=== PATIENT | female | born 1940 | race Caucasian/White ===

== ENCOUNTER 2024-02-10 16:51 | Emergency (ER) | payer MEDICARE, OTHER, SELFPAY ==
[2024-02-10] VITALS (23 sets, daily range): BP systolic 78–160; BP diastolic 60–141
--- NOTE | 2024-02-10 17:09 | ED.GENMED ---
History of Present Illness
General
Chief Complaint: Heart Rate Problem
Source: patient
Exam Limitations: none
Time Seen by Provider: 02/10/24 16:54
Nursing documentation reviewed up to this point in time: agreed with
History of Present Illness
History of Present Illness:
The patient is a pleasant 83-year-old female with a past medical history of atrial fibrillation on Eliquis who reports that she had 1 episode of nausea, vomiting, and diarrhea throughout the night, and this morning when she woke up, she felt like
she was in atrial fibrillation. Patient reports that the nausea, vomiting and diarrhea have resolved. Patient reports that she knows she is in A-fib because she feels lightheaded and fatigued. She denies chest pain and shortness of breath. She
reports she did take her Eliquis last night, although she did vomit shortly after taking it. However, she reports that she did take Eliquis again this morning. She reports she has not gone into A-fib since last March when she underwent an
ablation. She admits she did have 1 shot of Baileys last night and she generally does not drink alcohol. She denies fever. Patient arrives with a low blood pressure with systolic in the 80s to 90s. Her heart rate is ranging from 90s to 120s.
Patient is followed by Dr. Santoyo
Past History
Past History
ED Past Medical History: Arrthythmia (Atrial fib), HTN, Hypercholesterolemia and Other (hiatel hernia, hypomag/calcemia)
ED Past Surgical History: Other
Social History
Tobacco: Former smoker
Alcohol: Occasional
Drug: None
Personal: Other
Living: other ( in senior care)
Employment: Other
Family History
Family History: Other
Review of Systems
Review of Systems
Allergies reviewed?: Yes
All Other Systems: ROS reviewed and negative except as documented in HPI and ROS
Constitutional: Reports fatigue
EENT: Reports no symptoms
Respiratory: Reports no symptoms
Cardiac: Reports no symptoms
ABD/GI: Reports nausea, vomiting and diarrhea
: Reports no symptoms
Musculoskeletal: Reports no symptoms
Skin: Reports no symptoms
Neurological: Reports no symptoms
Endocrine: Reports no symptoms
Hematologic/Lymphatic: Reports no symptoms
Psychiatric: Reports no symptoms
Phy Exam
Physical Exam
Physical Exam:
Physical Exam
General: no apparent distress, not acutely ill
Neck: supple. no meningeal signs.
Heart: Irregular, tachycardic
Lungs: no acute respiratory distress. clear bilaterally
Abdomen: normal bowel sounds. not tender. no CVAT
Neuro: alert and oriented. no focal neurological deficits
Skin: no rash
Psychiatric: well kept. interactive and cooperative
Extremities: no edema. no calf tenderness. negative homans. good distal pulses
Course
Orders/Labs/Results
Orders:
Orders
02/10/24 16:52
EKG [Electrocardiogram (*1)] Urgent
Reason for Study: Atrial Fibrillation
EKG- Treatment ONCE
02/10/24 17:03
CBC/With Diff [Complete Blood Count/With Diff] Urgent
02/10/24 17:48
Diltiazem HCl [Cardizem] 5 mg IV NOW STA
02/10/24 18:00
Diltiazem 125 mg/125 ml Nss [Cardizem] 125 mg in 125 ml IV PER PROTOCOL
Initial dose in mg/hr, then titrate:: 2.5
Titrate to keep:: Heart rate 80-100 bpm
Titrate by mg/hr:: 5 mg/hr
Frequency of titrations (minutes):: 15
Maximum dose in mg/hr:: 15
02/10/24 18:03
Comprehensive Metabolic Panel Urgent
02/10/24 19:43
Propofol [Diprivan] 20 ml .ROUTE .STK-MED
02/10/24 19:50
EKG [Electrocardiogram (*1)] Urgent
Reason for Study: Atrial Fibrillation
EKG- Treatment ONCE
Abnormal Lab Results
02/10/24 02/10/24
17:03 18:03
Abs Immat Gran (auto) 0.1 H 10^3/uL
(0-0.05)
Absolute Monos (auto) 1.0 H 10^3/uL
(0.1-0.6)
Immature Gran % 0.7 H %
(0-0.5)
Monocytes % 10.8 H %
(1.7-9.3)
Chloride 108 H mmol/L
(98-107)
Carbon Dioxide 20 L mmol/L
(22-30)
BUN 20 H mg/dl
(7-17)
Calcium 8.2 L mg/dl
(8.4-10.2)
02/10/24 17:03
02/10/24 18:03
Vital Signs
Initial and Last Documented VS:
Initial Vital Signs
Temp Pulse Resp BP Pulse Ox
98.2 F 96 24 91/72 94
02/10/24 16:54 02/10/24 16:54 02/10/24 16:54 02/10/24 16:54 02/10/24 16:54
Last Documented Vital Signs
Temp Pulse Resp BP Pulse Ox
97.8 F 56 17 157/81 96
02/10/24 20:30 02/10/24 21:00 02/10/24 21:00 02/10/24 21:00 02/10/24 21:00
Procedures
Moderate Sedation
ASA Risk Score: Class II
Chart and allergies reviewed: Yes
Consent for anesthesia obtained: Yes
Time out completed (validating right patient & procedure): Yes
Moderate Sedation Start Time(when first medication is given): 19:47
History of difficult intubation: No
Airway free of obstruction: Yes
Patient has a gag reflex: Yes
Patient is able to open mouth: Yes
Patient has no dentures: Yes
Patient has no loose teeth: Yes
Medication administered by Provider during Moderate Sedation: IV Propofol (mg)
Total dose administered: 50
Time drug administered: 17:47
Moderate Sedation Procedure End Time: 20:00
Cardioversion
Indication:: Afib
Performed by:: me
Synchronized?: Yes
Energy Used: 150 joules
Number of attempts: 1
Successful?: Yes
MDM/Problems Addressed
Differential Diagnosis Includes:
poorly controlled atrial fibrillation, acute dehydration, acute hyponatremia
MDM/Problems Addressed:
Patient comes in with complaints of acute onset of atrial fibrillation
Chronic conditions affecting care: Arrhythmia
Acute Exacerbation and/or Progression of Chronic Illness:
Patient presents with acute exacerbation of chronic atrial fibrillation
Acute Exacerbation and/or Progression of Chronic Illness: Arrhythmia
*Pulse Oximetry
Patient hypoxic: no
*EKG
Interpreted by ED Provider?: Yes
Interpretation: abnormal
Comparison EKG: changes noted
Rate: normal
Rhythm: atrial flutter
[place]: left axis deviation
Interval: normal interval
QRS Pattern: normal QRS
Ischemia: non-specific ST changes
*Fuselage Framer Interpretation
Rate: tachycardiac
Interpretation: abnormal
Rhythm: atrial flutter
*Critical Care Note
Total Time (30-74mins, 75-104mins- exclusive of procedures): 42 min
comment:
42 minutes of critical care given to the patient including frequent reassessments of her blood pressure, heart rate, reviewing prior medical records, and discussing the risk and benefits of doing a conscious sedation and cardioversion with the
patient
Data Reviewed
Review of Other/Old Records Reveals: Discharge Summary (Discharge summary reviewed from cardiology from March 2024 when patient was admitted for ablation and symptomatic A-fib)
Source: patient
Patient Management
Social determinants of health affecting care: Living situation and Strong social support
Escalation/DeEscalation of care consider admission/obs:
Cardioversion successful and patient now in a normal sinus bradycardia. Patient reports she feels extremely well. Patient has noted no current or recent chest pain to suggest acute coronary syndrome. Patient is able to drink without difficulty.
Patient assures me that she will call her batter scaler tomorrow for follow-up.
Update Note
Update Note:
EKG done at 1952 shows sinus bradycardia with a normal axis, normal QRS, with no acute ischemia
ED Attending Note
-
Portions of this chart may have been created with voice recognition software.� Occasional wrong word or��sound alike� substitutions may have occurred due to the inherent limitations of voice recognition software.
Discharge Plan
Departure
Patient Disposition: Home (Routine Discharge)
Date of Disposition: 02/10/24
Time of Disposition: 20:59
Patient with high blood pressure during this ER visit?: No
Condition: Good
Covid-19: Not Applicable
Discharge Problem:
Chronic a-fib
Instructions: Atrial Fibrillation (DC), Cardioversion (DC), MODERATE SEDATION ADULT
Prescriptions:
No Action
pravastatin 10 MG tablet
10 mg PO QPM
Eliquis 5 MG tablet
5 mg PO BID
multivitamin Tablet
1 tab PO QPM
ferrous sulfate 325 mg (65 mg iron) Tablet
325 mg PO QPM
calcium carbonate 500 mg calcium (1,250 mg) Tablet
1,000 mg PO HS
magnesium 250 mg Tablet
250 mg PO BID
coenzyme Q10 [CoQ-10] 100 mg Capsule
100 mg PO HS
cholecalciferol (vitamin D3) [Vitamin D3] 125 mcg (5,000 unit) Tablet
125 mcg PO QPM
cyanocobalamin (vitamin B-12) [Vitamin B-12] 1,000 mcg Tablet
1,000 mcg PO QPM
Evenity
1 dose IM MONTHLY
Vitamin C
1 tab PO QPM
metoprolol succinate 50 mg Tablet Extended Release 24 Hr
50 mg PO BID
amlodipine 5 mg Tablet
5 mg PO QPM Qty: 90 3RF
omeprazole 40 mg capsule,delayed release(DR/EC)
40 mg PO QPM
fluoxetine 10 mg capsule
10 mg PO DAILY
Rx Instructions:
TAKEN W/ 20MG = 30MG
pentoxifylline 400 MG tablet extended release
400 mg PO DAILY
fluoxetine 20 MG capsule
20 mg PO DAILY
Rx Instructions:
TAKEN W/ 10MG = 30MG
Referrals:
Danitza Bates MD [Family Provider] -
Debby Maynard MD [Active] - (Call tomorrow to follow-up within 1 week)
Interventions
Interventions:
*Risk Screen - Suicide Last Done: 02/10/24 16:54
*General Assessment Last Done: 02/10/24 16:54
*Neglect/Abuse Screening Last Done: 02/10/24 16:54
ED- Fall Risk Assessment Last Done: 02/10/24 17:10
*Nursing Disposition Last Done: 02/10/24 21:32
ED- Cardiac Assessment Last Done: 02/10/24 17:10
ED- Pulmonary Assessment Last Done: 02/10/24 17:10
Discharge Date and Time
Discharge Date/Time: 02/10/24 21:35
Print Language: P[place] ISLANDER
[2024-02-10 17:12] LABS: % Basophils 0.5 % (0-2); % Immature Granulocytes 0.7 % (0-0.5); % Lymphocytes 23.6 % (20.5-51.1); % Monocytes 10.8 % (1.7-9.3); % Neutrophils 62.4 % (42.2-75.2); Absolute Basophils 0.1 10^3/uL (0-0.2); Absolute Eosinophils 0.2 10^3/uL (0-0.7); Absolute Immature Granulocytes 0.1 10^3/uL (0-0.05); Absolute Lymphocytes 2.3 10^3/uL (1.2-3.4); Hematocrit 43.5 % (37.0-47.0); Hemoglobin 15.2 g/dL (12.0-16.0); Mean Corp Hgb Conc. 34.9 g/dL (33.0-37.0); Mean Corpuscular Volume 85.8 fL (81.0-99.0); Mean Platelet Volume 9.6 fL (7.4-10.4); Nucleated Red Blood Cells % 0 %; Platelet Count 276 10^3/uL (130-400); Red Blood Cell Count 5.07 10^6/uL (4.20-5.40); Red Cell Dist. Width 13.7 % (11.5-14.5); White Blood Cell Count 9.6 10^3/uL (4.8-10.8)
[2024-02-10] MEDS: CARDIZEM 5 MG IV (18:04)
[2024-02-10] MEDS: CARDIZEM 125 IV (18:05)
[2024-02-10 18:27] LABS: ALT (SGPT) 16 U/L (0-35); AST (SGOT) 27 U/L (14-36); Albumin 3.5 g/dl (3.5-5.0); Alkaline Phosphatase 67 U/L (38-126); Blood Urea Nitrogen 20 mg/dl (7-17); Calcium 8.2 mg/dl (8.4-10.2); Carbon Dioxide 20 mmol/L (22-30); Chloride 108 mmol/L (98-107); Estimated Creatinine Clearance 40 ml/min; Glucose 97 mg/dl (70-99); Potassium 3.9 mmol/L (3.5-5.1); Sodium 141 mmol/L (135-145); Total Bilirubin 0.5 mg/dl (0.2-1.3); Total Protein 6.3 g/dl (6.3-8.2); eGFR > 60.00
== END 2024-02-10 21:35 | disposition home or self-care (01) ==
LOC: EMR 16:51
PROVIDERS: EMERGENCY PHYSICIAN Emergency Medicine; FAMILY PHYSICIAN Family Medicine
DX: I48.20 Chronic atrial fibrillation, unspecified (principal); I10 Essential (primary) hypertension; E78.00 Pure hypercholesterolemia, unspecified; Z79.01 Long term (current) use of anticoagulants; Z87.891 Personal history of nicotine dependence
CPT/HCPCS: 99284; 96374; 80053; 85025; 93005

== ENCOUNTER 2024-05-21 01:00 | Inpatient (IN) | payer MEDICARE, OTHER, SELFPAY ==
[2024-05-18] VITALS (25 sets, daily range): BP systolic 63–163; BP diastolic 52–93; BMI 28.9
--- NOTE | 2024-05-18 08:11 | ITS.CL.ABL ---
St[facility] Machine - Ablation
Ablation
Procedure Report:
ELECTROPHYSIOLOGIC STUDY AND POSSIBLE ABLATION
DATE: 05/18/24
Primary Care Provider: Danitza Bates MD
Primary Jersey Knitter: Debby Maynard MD
INDICATION:
Symptomatic Atrial Fibrillation.
More recently she has demonstrated persistent AF and AT
HISTORY: See H and P.
Symptomatic AF, poorly controlled with attempted medical therapy
She has recurrent symptomatic atrial fibrillation and underwent EP study and ablation April 01, 2023 (cryoballoon ablation).
She has had several recurrences since that ablation. She required cardioversion for symptomatic atrial fibrillation on February 10, 2024.
Previously treated with propafenone.
She is [id number] VASC score of 4.
She has had no major bleeding complications on Eliquis
HAS-BLED: 2
Age
Alcohol use
CHADSVASc: 5
HTN
Age
DM (glucose intol)
F Gender
PRESENTING RHYTHM: AT
HISTORY: See H and P.
Symptomatic AF, poorly controlled with attempted medical therapy.
ANTICOAGULATION: Eliquis 5 mg twice daily
'TIME-OUT': called and confirmed.
SEDATION/ANESTHESIA: provided via the anesthesia department using general anesthesia.
PROCEDURE:
Ultrasound Guidance performed by ak was utilized for femoral venous Vascular Access b/l.
A decapolar CS catheter was placed within the CS for mapping and pacing.
The intracardiac ultrasound catheter was positioned in the RA for continuous intracardiac ultrasound imaging.
Heparin bolus and infusion to target ACT at 300 -350 seconds was administered. Transseptal puncture was performed. This entailed advancing a sheath with dilator into the superior vena cava and withdrawing both (monitoring intracardiac ultrasound,
fluoroscopy and tip pressure) with the tip oriented toward the atrial septum. The fossa ovalis was engaged (indicated by sudden displacement of the sheath tip as well as tenting of the fossa seen on intracardiac ultrasound).
The [employer] transseptal system was used. Left atrial catheter position was confirmed by echocardiographic imaging and fluoroscopy followed by RF delivery using the [employer] system resulting in successful LA access with pressure monitoring
demonstrating LA pressure waveforms (LA mean pressure 10 mm Hg). The sheath was advanced over the dilator and positioned in the left atrium.
The [employer] Grid multipolar mapping catheter was initially positioned through the transseptal sheath for high density mapping.
Geometry and voltage mapping was performed using the Rodriguez multipolar grid catheter. Ensite-X was utilized for three-dimensional electroanatomical mapping.
A 3-D map was created using Ensite-X in Voxel mode. A 3-D reconstructed CT image was compared to the 3-D Navex map to assist in anatomic evaluation, mapping and ablation.
This finds that the pulmonary veins are isolated in a wide area circumferential fashion except for an area of reconnection at the right superior pulmonary vein along its anterior superior quadrant. The posterior wall which was not targeted at her
ablation in 2022 shows only patchy fractionated EGM's.
The [employer] PFA catheter and system was used for cardiac ablation. Catheter positioning was guided and confirmed using both I.C.E. and fluoroscopy.
Our approach today was to reisolate the right superior pulmonary vein and also fully isolate the posterior wall of the left atrium using the Far[employer] PFA system. Once ablation was completed, cardioversion was used to restore sinus rhythm.
Remapping was performed. PV isolation (entrance and exit block) was present at each PV ostia (LSPV, LIPV, RSPV, RIPV). Additionally the posterior wall of the left atrium was electrically isolated except for a patch of tissue at the right inferior
pulmonary vein antrum posteriorly. Programmed electrical stimulation failed to induce any sustained arrhythmias. Atrial fibrillation could not be induced.
Given the finding of remaining EGM's of the posterior wall of the left atrium towards the antrum of the right inferior pulmonary vein, the ablation catheter was once again positioned in this area was targeted for ablation to complete a full
posterior wall isolation.
I.C.E. :
Pre-Ablation Post-Ablation
LVEF: 55 % 55 %
WMA: none none
Pericardial effusion: trace trace
COMPLICATIONS:
None
SUMMARY:
- Mapping and ablation to re-isolate the PVs
- Additional AF ablation set after PVI (left atrial posterior wall ablation).
- 3-D Electroanatomical Mapping
- Intracardiac Ultrasound
Post ablation, I discussed today's findings and results with the patient's daughter, Milka.
RECOMMENDATIONS:
- Observe in monitored bed.
- Maintain oral anticoagulation.
- Continue Toprol-XL
- Office visit with EP DARRELL in in 2-4 weeks, then with me in 4 months.
- Continue cardiovascular care with Dr Debby Maynard
- If there is recurrence of atrial arrhythmias, would progress consider antiarrhythmic drug therapy rather than another ablation.
Copy to:
Danitza Bates MD
Debby Maynard MD
[2024-05-18 08:54] LABS: ACT-LR - POC 276 Seconds (116-155)
[2024-05-18 09:13] LABS: ACT-LR - POC 334 Seconds (116-155)
[2024-05-18 09:37] LABS: ACT-LR - POC 363 Seconds (116-155)
[2024-05-18] MEDS: ANESTHETIC LOZENGE 1 LOZENGE PO ×2 (12:45→17:01)
--- NOTE | 2024-05-18 14:35 | PTCARENOTE ---
At 1400 Patient ambulated to bathroom without difficulty. Patient placed on toilet and asked to pull red cord if there are any issues. Red cord pulled. Patent stated bleeding in R groin. Pressure applied and ambulated back to stretcher. 10 mins
pressure held. small hematoma noted near right ride of labia. pressure held there as well. Hemostasis pad applied and groind area dressed with gauze and tegaderm. CARTOGRAPHIC ENGINEER made aware. continue bedrest.
[2024-05-18] MEDS: TYLENOL 650 MG PO ×2 (17:36→21:03)
[2024-05-18] MEDS: NORVASC 5 MG PO (18:20)
--- NOTE | 2024-05-18 18:23 | PTCARENOTE ---
Rec'd pt from lab analyst. R groin dsg has slight drainage and outlined w/ black marker. No change noted from previous assessment. No complaints of pain at this time. Oriented pt to room. Currently sitting on sit of bed eating dinner; call [place] w/in
reach.
[2024-05-18] MEDS: TOPROL XL 75 MG PO (19:46)
[2024-05-18] MEDS: PRAVACHOL 10 MG PO (19:46)
[2024-05-18] MEDS: ELIQUIS 5 MG PO (19:47)
--- NOTE | 2024-05-18 21:37 | PTCARENOTE ---
Pt rec'd at change of shift awake,alert . Right femoral site drsg intact. no active bleeding or hematoma present.Medicated with Tylenol for shoulder arthritis pain. Pt also now c/o feeling 'gassy' from drinking soda at dinner. PA notified. requested
Gas X. Sinus on telemetry.
--- NOTE | 2024-05-18 22:03 | PTCARENOTE ---
Pt prior to receiving Gas x reports vomiting x 3 in bathroom. Pt relates this all to the soda she resting in bed at present. Requesting more Tylenol but too soon since last dose. Warm blanket applied to arthritic shoulder. right groin remains
stable.
[2024-05-18] MEDS: ZOFRAN 4 MG IV (23:31)
--- NOTE | 2024-05-19 00:24 | PTCARENOTE ---
Pt medicated with Zofran after c/o nausea. Pt states ' I think it was the oil on my dinner that has my stomach so upset'. Warm blanket placed on left shoulder (arthritic) for comfort. Right femoral site remains dry no active bleeding or hematoma
present. call [place] within reach. Sinus on telemetry
--- NOTE | 2024-05-19 01:05 | PTCARENOTE ---
Pt with continued c/o nausea. Vomited up appprox 50 cc of dark liq Heme test positive. PA made aware.
--- NOTE | 2024-05-19 01:21 | W.PN.UPDATE ---
Update Note
Progress Note Update
Cardiology Update Note:
-Pt with coffee ground emesis after c/o of gas pain/indigestion
-Received Eliquis earlier, will place on hold for now until assessed by Cardiology in the AM
-Will give a stat dose of Protonix gtt and start IV in the AM
-Will benefit from GI consult
-Will monitor overnight and check h/h in the AM
[2024-05-19] MEDS: PROTONIX 100 IV (01:41)
[2024-05-19 01:52] VITALS: BP 153/76
--- NOTE | 2024-05-19 02:35 | PTCARENOTE ---
Pt reports having had issues with vomiting in past sees GI Dr given possible dx of IBS and hiatal hernia. Protonix gtt started as ordered by CV PA for heme positive emesis (rhonda moralez). remains sinus on telemetry with stable right groin.
[2024-05-19 02:58] LABS: Hematocrit 38.7 % (37.0-47.0); Hemoglobin 13.2 g/dL (12.0-16.0); Mean Corp Hgb Conc. 34.1 g/dL (33.0-37.0); Mean Corpuscular Hgb 29.9 pg (27.0-31.0); Mean Corpuscular Volume 87.8 fL (81.0-99.0); Mean Platelet Volume 9.6 fL (7.4-10.4); Platelet Count 282 10^3/uL (130-400); Red Blood Cell Count 4.41 10^6/uL (4.20-5.40); Red Cell Dist. Width 15.6 % (11.5-14.5); White Blood Cell Count 10.2 10^3/uL (4.8-10.8)
[2024-05-19 03:10] LABS: Blood Urea Nitrogen 28 mg/dl (7-17); Calcium 8.5 mg/dl (8.4-10.2); Carbon Dioxide 38 mmol/L (22-30); Chloride 93 mmol/L (98-107); Estimated Creatinine Clearance 39 ml/min; Glucose 126 mg/dl (70-99); Magnesium 1.4 mg/dl (1.6-2.3); Potassium 3.7 mmol/L (3.5-5.1); Sodium 139 mmol/L (135-145); eGFR > 60.00
--- NOTE | 2024-05-19 06:22 | PTCARENOTE ---
Dr Llanos updated about pts coffee ground emesis during the night with Protonix gtt ordered by PA and stable h/h 13.2/38.7
--- NOTE | 2024-05-19 07:28 | W.PN.CARDCBS ---
Addendum entered and electronically signed by Pascual Maynard MD 05/19/24 12:00:
She and examined by me
Remaining in SR by tele
Her major complaint is nausea and vomiting which she tells me has been rather chronic for several months
RRR, Nl S1 and S2, No S3 or S4, 05/25 [facility]
CTA b/l
S, NT, ND, + BS
No edema
Neuro non focal
Has remained in SR post ablation and CV 05/18/24
She had abrupt onset of nausea and vomiting with coffee-ground emesis. Stable Hgb.
Seen by GI and plan is for endoscopic evaluation likely
Holding apixaban and initiating IV heparin. Plan would be to hold heparin AM of endoscopy and then resume DOAC as soon as possible post endoscopy.
* Note: Given Conversion yesterday from AF to SR, will need to minimize any time off anticoagulation to no more than 12-24 hrs
Original Note:
Today's Communication / Plan
-
GI consult
IV protonix
zofran for nausea
continue eliquis at this time
Impression / Plan
-
PCP: Danitza Bates MD
CDY: Debby aMynard MD
83 y/o, PMH sig for AFib w/prior PVI (03/2023), now with recurrent symptomatic PAF, s/p multiple cardioversions. [id number]=8 maintained on eliquis. She has had no major bleeding complications on OAC.
S/P PFA. Uneventful postoperative course, stable on tele overnight, until late last evening she developed gas pain with indigestion. Ultimately because nauseous with vomiting of heme + coffee ground emesis. She was started on protonix gtt and now GI
has been consulted.
IMPRESSION:
PAF, s/p PFA, 05/18/24
Prior PVI (03/2023)
N/V with coffee ground emesis
GERD/IBS/HH
HTN
HLD
Glucose intolerance
Hypomagnesemia
Depression/Anxiety
Chronic Vertigo
PLAN:
Tele- NSR
bilat groins with mild ooze in recovery but now stable
eliquis restarted last evening- Hgb stable and will continue today
developed n/v with heme + coffee ground emesis overnight- protonix gtt started, GI consulted
this is an ongoing issue with her for 'years' and she has seen GI as outpt- initially seeing Dr. Dumas with [facility]- this doctor is currently unavailable- difficulty finding another outpt GI- has appt next month with Dr. Helga Bates at
[facility] [place]
pt says she had an upper endo 'not too long ago' but there are no reports in [facility]
takes daily omeprazole 40mg
will await GI input- she may need repeat upper endoscopy, however will not be able to stop OAC post ablation
H/H stable this AM- 13.2/38.7
Followup at [facility] in 2 weeks as scheduled and with Dr. Guardado thereafter
Continued GI followup
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
Subjective
Date of Service: May 19, 2024
Denies cp/palps/dyspnea
bloating/indigestion with nausea/vomiting overnight
currently
groin site without pain
Objective
Labs:
05/19/24 02:04
05/19/24 02:04
Labs
Hgb 13.2 g/dL (12.0-16.0) 05/19/24 02:04
Hct 38.7 % (37.0-47.0) 05/19/24 02:04
Plt Count 282 10^3/uL (130-400) 05/19/24 02:04
Sodium 139 mmol/L (135-145) 05/19/24 02:04
Potassium 3.7 mmol/L (3.5-5.1) 05/19/24 02:04
BUN 28 mg/dl (7-17) H 05/19/24 02:04
Creatinine 0.9 mg/dL (0.6-1.0) 05/19/24 02:04
Glucose 126 mg/dl (70-99) H 05/19/24 02:04
Vital Signs and I&O:
Vital Signs
Temp Pulse Resp BP Pulse Ox
97.9 F 71 20 153/76 91
05/19/24 01:54 05/19/24 06:00 05/19/24 01:54 05/19/24 01:52 05/19/24 01:53
Vital Signs
Temp Pulse Resp BP Pulse Ox
97.9 F 71 20 153/76 91
05/19/24 01:54 05/19/24 06:00 05/19/24 01:54 05/19/24 01:52 05/19/24 01:53
Intake & Output
05/17/24 05/18/24 05/19/24 05/20/24
06:59 06:59 06:59 06:59
Intake Total 1290 / 1290
Balance 1290 / 1290
Physical Exam
Physical Exam
AAOx3, MAEE 5/5
RRR S1 S2 no murmurs
CTA bilat, non labored
soft abd, + bs
right groin site without ht/bleeding, mildly tender but soft
bilat extremities w/palpable distal pulses, no edema
[2024-05-19] MEDS: PROTONIX 40 MG PO (08:50)
[2024-05-19] MEDS: TOPROL XL 75 MG PO ×2 (08:50→19:58)
[2024-05-19 08:52] VITALS: BP 109/63
[2024-05-19] MEDS: PROTONIX IV IV (09:34)
[2024-05-19] MEDS: PROZAC 30 MG PO (10:47)
[2024-05-19] MEDS: TRENTAL 400 MG PO (10:48)
[2024-05-19] MEDS: ELIQUIS 5 MG PO (10:49)
--- NOTE | 2024-05-19 11:11 | CON.GI ---
Addendum entered and electronically signed by Mary Cloud MD 05/19/24 12:23:
I saw and examined the patient.
The DIRECTOR OF LEADERSHIP DEVELOPMENT's note was reviewed and I agree with the note.
Comment: This is a 83-year-old female with past medical history as listed below including PAF s/p multiple cardioversion on Eliquis, large hiatal hernia was seeing Dr. Olmstead and after he retired has been seeing Dr. Russell who had ablation and
cardioversion on 05/18/2024 which was successful. Yesterday she started to develop epigastric discomfort with nausea vomiting also had coffee-ground emesis and she says last night she also had melena. She has been on omeprazole 40 mg daily prior
to admission and denies any use of NSAIDs. Her last endoscopy and colonoscopy were about a year ago at [facility] and showed large hiatal hernia and diverticulosis. She did receive her Eliquis today at 9 AM and has also now been started on
pantoprazole drip.
Assessment and plan nausea vomiting with coffee-ground emesis and melena with epigastric discomfort most likely related to esophagitis versus Mike's erosions or ulcers. Agree with Protonix drip. Patient to be switched to heparin drip and
Eliquis is on hold now but she did receive a dose today at 9 AM and will schedule her for an endoscopy on after Eliquis washout but if she has further episodes of melena or coffee-ground emesis or drop in hemoglobin will be performed
sooner. Will also get LFTs and lipase level and if her pain persists may also need imaging. Will also get abdomen KUB to rule out ileus or obstruction although I think this is less likely
Original Note:
Consultation
-
Date/Time Consultation Requested: 05/19/24 0730
Date/Time Consultation Performed: 05/19/24 1045
Requesting Provider: AHMET Lew
Performing Provider: Dr. Cloud/AHMET Kohli
Reason for Consultation: coffee ground emesis
Medical History
Chief Complaint / HPI
Chief Complaint: cardiac ablation
History of Present Illness:
83-year-old female with past medical history of paroxysmal A-fib status post multiple cardioversions, GERD, large hiatal hernia, hypertension, hyperlipidemia, depression, anxiety, chronic vertigo, IBS who was here for planned cardioversion that was
successful on 05/18/2024. This was successful. Patient was maintained on Eliquis. Last evening she developed indigestion which she states is usually a monthly issue for her. She had abrupt onset of nausea and vomiting with coffee-ground emesis.
The patient follows with outpatient GI group at [facility] Dr. Martinez. She is on omeprazole 40 mg daily. She states that usually once a month she has an attack where she has acute onset of epigastric discomfort followed by nausea and vomiting. The
patient states that usually she has to force regurgitate at periods of time when she feels like things are just 'stuck at the bottom'. This could be associated with liquids and solids. She has never had hematemesis prior or coffee-ground emesis.
The patient states that she does have a history of a hiatal hernia and was evaluated in the past for possible surgery but did not quite meet qualifications. The patient this morning still had episodes of small quantity of coffee-ground emesis.
When I was evaluating her she did still have 2 further episodes of small quantity of coffee grounds. She still does complain of some mid epigastric discomfort with radiation through to her back. This is mild, dull, intermittent. Vomiting relieves
this pressure, nothing makes worse. The patient had Eliquis this morning at 9 AM. She continues on pantoprazole drip.
Past Medical History
Past Medical History: Other (Paroxysmal A-fib, GERD, large hiatal hernia, hypertension, hyperlipidemia, depression, anxiety, chronic vertigo, IBS)
Past Surgical History: Other (Cardioversion, cardiac ablation)
Social History
Tobacco: Non-Smoker
Alcohol: None
Drug: None
Living: Alone
Family History
Family History: Other (Mother and maternal uncle with colon cancer)
Allergies / Home Medications
Allergy/AdvReac Type Severity Reaction Status Date / Time
amoxicillin [From Augmentin] Allergy Rash Verified 02/10/24 16:53
clavulanic acid Allergy Rash Verified 02/10/24 16:53
[From Augmentin]
Penicillins Allergy Rash Verified 02/10/24 16:53
�Medication �Instructions �Recorded
apixaban 5 mg tablet (Eliquis) 5 mg PO BID Blood Clot 11/15/20
Prevention/Tx
pravastatin 10 mg tablet 10 mg PO QPM High Cholesterol 11/15/20
fluoxetine 20 mg capsule 30 mg PO DAILY Depression 06/26/21
pentoxifylline 400 mg 400 mg PO DAILY Blood Clot 06/26/21
tablet,extended release Prevention/Tx
ferrous sulfate 325 mg (65 mg 325 mg PO QPM Supplement 10/24/22
iron) tablet
omeprazole 40 mg capsule,delayed 40 mg PO DAILY Gastrointestinal 02/26/23
release Issue
calcium carbonate 1,000 mg PO DAILY 03/18/23
coenzyme Q10 100 mg capsule 100 mg PO QPM 03/18/23
(CoQ-10)
cyanocobalamin (vitamin B-12) 1,000 mcg PO QPM 04/01/23
1,000 mcg tablet (Vitamin B-12)
metoprolol succinate 50 mg 75 mg PO BID 04/01/23
tablet,extended release 24 hr
amlodipine 5 mg tablet 5 mg PO QPM #90 tabs 04/02/23
ascorbic acid (vitamin C) 500 mg 500 mg PO QPM 05/18/24
tablet (Vitamin C)
cholecalciferol (vitamin D3) 25 25 mcg PO DAILY 05/18/24
mcg (1,000 unit) capsule (Vitamin
D3)
denosumab 60 mg/mL subcutaneous 60 mg SC [id number] 05/18/24
syringe (Prolia)
magnesium 200 mg tablet 400 mg PO QPM 05/18/24
multivitamin 1 tab PO QPM 05/18/24
Review of Systems
-
All other systems: A 12 pt ROS was Negative except as stated above in HPI
Vital Signs
Temp Pulse Resp BP Pulse Ox
97.7 F 71 20 153/76 95
05/19/24 08:00 05/19/24 06:00 05/19/24 08:00 05/19/24 01:52 05/19/24 08:00
Physical Exam
Exam
General: No Apparent Distress
HEENT: Anicteric
Respiratory: Clear
Cardiac: Regular Rhythm
GI: Soft, Non Tender, Non Distended, Normal Bowel Sounds and Other (Coffee-ground emesis visualized)
Skin: Warm and Dry
Neuro: AO x 3
Psych: Calm
Results
WBC 10.2 10^3/uL (4.8-10.8) 05/19/24 02:04
Hgb 13.2 g/dL (12.0-16.0) 05/19/24 02:04
Hct 38.7 % (37.0-47.0) 05/19/24 02:04
MCV 87.8 fL (81.0-99.0) 05/19/24 02:04
Plt Count 282 10^3/uL (130-400) 05/19/24 02:04
Sodium 139 mmol/L (135-145) 05/19/24 02:04
Potassium 3.7 mmol/L (3.5-5.1) 05/19/24 02:04
Chloride 93 mmol/L (98-107) L 05/19/24 02:04
Carbon Dioxide 38 mmol/L (22-30) H 05/19/24 02:04
BUN 28 mg/dl (7-17) H 05/19/24 02:04
Creatinine 0.9 mg/dL (0.6-1.0) 05/19/24 02:04
Calcium 8.5 mg/dl (8.4-10.2) 05/19/24 02:04
Diagnostic Image Results:
None this admission
Prior GI Procedures:
EGD: Within the past year [facility] (Dr. Olmstead) 'hiatal hernia'
Colonoscopy: Within the past year [facility] (Dr. Olmstead) ' diverticulosis'
Assessment / Plan
-
83-year-old female with past medical history of paroxysmal A-fib status post multiple cardioversions, GERD, large hiatal hernia, hypertension, hyperlipidemia, depression, anxiety, chronic vertigo, IBS who was here for planned cardioversion that was
successful on 05/18/2024. This was successful. Patient was maintained on Eliquis. Last evening she developed indigestion which she states is usually a monthly issue for her. She had abrupt onset of nausea and vomiting with coffee-ground emesis.
Asked to evaluate for the same. Hemoglobin stable 13.2. Has had approximately 4 small episodes of coffee-ground emesis. Continues to have small episodes of vomiting at present time. Epigastric discomfort with radiation through the back relieved
by vomiting. History of large hiatal hernia. On omeprazole 40 mg as an outpatient. Cardiac ablation on for with need to be on anticoagulation. Had Eliquis at 9 AM.
Impression:
Coffee-ground emesis
Epigastric discomfort
Large hiatal hernia per patient report
Chronic GERD, intermittent episodes nausea and vomiting as outpatient
Cardioversion 05/18/2024 with need for anticoagulation
Plan:
-Continue Pantoprazole gtt as already ordered
-Patient currently not tolerating oral intake, discussed with primary service. May require low dose IVF
-Zofran prn
-Had Eliquis at 9am, discussed with Cardiology, will convert to Heparin gtt in anticipation of EGD.
-Trend CBC, BMP
-EGD when Eliquis washout completed or unless actively bleeding.
-Follow up with primary GI as an outpatient.
-
-
Thank you for consultation and allowing me to participate in the patient's care. Please call the procurement professional logistics GI physician during the after hours with any questions or concerns.
[2024-05-19 11:46] VITALS: BP 110/69
--- NOTE | 2024-05-19 12:22 | CM ---
Reviewed chart. Met with Mrs. Chan to review discharge plans. She states prior to admission she resides alone in a two story home with one step to enter. She states she has a fist floor set-up. She states prior to admission she was independent
with ambulation and adls. She states she does not any DME in the home. She states she has a prescription plan with [employer] and uses [facility]. The discharge plan is to return home when medically stable.
[2024-05-19 13:01] LABS: APTT 28.7 Sec (23.4-35.0)
[2024-05-19 13:19] LABS: ALT (SGPT) 22 U/L (0-35); AST (SGOT) 47 U/L (14-36); Albumin 3.8 g/dl (3.5-5.0); Alkaline Phosphatase 57 U/L (38-126); Direct Bilirubin 0.1 mg/dl (0.0-0.4); Lipase 189 U/L (23-300); Total Bilirubin 0.6 mg/dl (0.2-1.3); Total Protein 6.4 g/dl (6.3-8.2)
[2024-05-19] MEDS: NSS 1000 IV (13:48)
[2024-05-19 15:15] VITALS: BP 132/63
[2024-05-19] MEDS: MAGNESIUM SULFATE 50 IV (15:27)
--- NOTE | 2024-05-19 15:40 | PTCARENOTE ---
Pt vomited several times, small amts 10-20ml black coffee ground emesis. IVF infusing at 80 ml/hr. Now that Pt is getting IVF, she is not drinking as much water or ice chips and now is not as nauseous. Mag rider infusing as well.
[2024-05-19] MEDS: MAG-TAB SR 84 MG PO (18:00)
[2024-05-19] MEDS: PRAVACHOL 10 MG PO (18:00)
[2024-05-19] MEDS: NORVASC 5 MG PO (18:00)
[2024-05-19] MEDS: FEOSOL 325 MG PO (18:00)
--- NOTE | 2024-05-19 18:15 | PTCARENOTE ---
Pt feeling better now, she hasn't had nausea for several hours and has managed to sleep for an hour or so. She does not want to eat dinner because her stomach is feeling better. Earlier when she attempted to eat, she became nauseous.
[2024-05-19 19:56] VITALS: BP 116/55
[2024-05-19] MEDS: HEPARIN 25000 UNITS/250 ML IV (19:58)
[2024-05-19 23:33] VITALS: BP 108/61
[2024-05-19] MEDS: NSS IV (23:41)
--- NOTE | 2024-05-20 01:52 | PTCARENOTE ---
Received patient at change of shift, SR on the monitor, HR in the 60s. Heparin started as per order. NSS discontinued as per order. See JUL.
[2024-05-20 02:25] VITALS: BP 121/59
[2024-05-20 03:06] LABS: APTT 55.2 Sec (23.4-35.0)
[2024-05-20 03:13] LABS: Blood Urea Nitrogen 44 mg/dl (7-17); Calcium 7.4 mg/dl (8.4-10.2); Carbon Dioxide 31 mmol/L (22-30); Chloride 97 mmol/L (98-107); Estimated Creatinine Clearance 44 ml/min; Glucose 92 mg/dl (70-99); Lipase 201 U/L (23-300); Magnesium 2.5 mg/dl (1.6-2.3); Potassium 3.2 mmol/L (3.5-5.1); Sodium 134 mmol/L (135-145); eGFR > 60.00
[2024-05-20 03:15] LABS: Hematocrit 30.5 % (37.0-47.0); Hemoglobin 10.2 g/dL (12.0-16.0); Mean Corp Hgb Conc. 33.4 g/dL (33.0-37.0); Mean Corpuscular Volume 89.7 fL (81.0-99.0); Mean Platelet Volume 9.4 fL (7.4-10.4); Platelet Count 225 10^3/uL (130-400); Red Cell Dist. Width 15.8 % (11.5-14.5); White Blood Cell Count 10.3 10^3/uL (4.8-10.8)
[2024-05-20 07:00] VITALS: BP 115/59
[2024-05-20] MEDS: TOPROL XL 75 MG PO ×2 (08:55→19:48)
[2024-05-20] MEDS: PROTONIX IV 40 MG IV (08:56)
[2024-05-20] MEDS: TRENTAL 400 MG PO (08:56)
[2024-05-20 09:46] LABS: APTT 97.8 Sec (23.4-35.0)
--- NOTE | 2024-05-20 09:48 | W.PN.CARDCBS ---
Addendum entered and electronically signed by Jerry Gautam DO 05/20/24 10:08:
.
K was 3.2 today. KCL 40 meq PO now. Monitor CMP
Original Note:
Today's Communication / Plan
-
Appreciate GI input.
Cont IV Heparin and Eliquis wash out. Pt is for endoscopy on May 21.
Protonix as per GI
No recurrent emesis.
Remains sinus
She noted that emesis is an ongoing issue with her for 'years' and she has seen GI as outpt- initially seeing Dr. Dumas with [facility]- this doctor is currently unavailable- difficulty finding another outpt GI- has appt next month with
Dr. Helga Bates at [facility].
pt says she had an upper endo 'not too long ago' but there are no reports in [facility]
takes daily omeprazole 40mg as outpt
Cont to monitor H/H
H/H 13.2/38.7 on May 19 and now 10.2 on May 20 2024
Impression / Plan
-
.
PCP: Danitza Bates MD
CDY: Debby Maynard MD
HPI: 83 y/o, PMH sig for AFib w/prior PVI (03/2023), now with recurrent symptomatic PAF, s/p multiple cardioversions. [id number] maintained on eliquis. She has had no major bleeding complications on OAC.
S/P PFA. Uneventful postoperative course, stable on tele overnight, until late last evening she developed gas pain with indigestion. Ultimately because nauseous with vomiting of heme + coffee ground emesis. She was started on protonix gtt and now GI
has been consulted.
IMPRESSION:
PAF, s/p PFA, 05/18/24
Prior PVI (03/2023)
N/V with coffee ground emesis
GERD/IBS/HH
HTN
HLD
Glucose intolerance
Hypomagnesemia
Depression/Anxiety
Chronic Vertigo
PLAN:
Appreciate GI input.
Cont IV Heparin and Eliquis wash out. Pt is for endoscopy on May 21.
Protonix as per GI
No recurrent emesis.
Remains sinus
She noted that emesis is an ongoing issue with her for 'years' and she has seen GI as outpt- initially seeing Dr. Dumas with [facility]- this doctor is currently unavailable- difficulty finding another outpt GI- has appt next month with
Dr. Helga Bates at [facility].
pt says she had an upper endo 'not too long ago' but there are no reports in [facility]
takes daily omeprazole 40mg as outpt
Cont to monitor H/H
H/H 13.2/38.7 on May 19 and now 10.2 on May 20 2024
Followup at [facility] in 2 weeks as scheduled after discharge and with Dr. Guardado thereafter
Discussed with nursing.
Progress Note - Rn House Supervisor
Subjective
Date of Service: May 20, 2024
Pt seen and examined. No complaints. No chest pain or shortness of breath. No emesis
Objective
Labs:
05/20/24 02:37
05/20/24 02:37
Labs
Hgb 10.2 g/dL (12.0-16.0) L D 05/20/24 02:37
Hct 30.5 % (37.0-47.0) L 05/20/24 02:37
Plt Count 225 10^3/uL (130-400) D 05/20/24 02:37
APTT 55.2 Sec (23.4-35.0) H 05/20/24 02:37
Sodium 134 mmol/L (135-145) L 05/20/24 02:37
Potassium 3.2 mmol/L (3.5-5.1) L 05/20/24 02:37
BUN 44 mg/dl (7-17) H 05/20/24 02:37
Creatinine 0.8 mg/dL (0.6-1.0) 05/20/24 02:37
Glucose 92 mg/dl (70-99) 05/20/24 02:37
Vital Signs and I&O:
Vital Signs
Temp Pulse Resp BP Pulse Ox
98.2 F 62 16 115/59 94
05/20/24 06:57 05/20/24 08:00 05/20/24 06:57 05/20/24 07:00 05/20/24 06:57
Vital Signs
Temp Pulse Resp BP Pulse Ox
98.2 F 62 16 115/59 94
05/20/24 06:57 05/20/24 08:00 05/20/24 06:57 05/20/24 07:00 05/20/24 06:57
Intake & Output
05/18/24 05/19/24 05/20/24 05/21/24
06:59 06:59 06:59 06:59
Intake Total 1290 / 1290
Output Total 250 / 250
Balance 1290 / 1290 -250 / -250
Physical Exam
Physical Exam
General: No acute distress, AAOX3
Neck: Negative JVD
Heart: Regular, Negative S3 positive S1/S2, Negative S4, No murmur
Lungs: CTA b/l, negative wheezes/rales/rhonchi
Abd: Positive BS, NT/ND, neg rebound/rigidity/guarding
Ext: Negative cyanosis/clubbing/edema
Neuro: nonfocal
[2024-05-20] MEDS: PROZAC 30 MG PO (10:19)
[2024-05-20] MEDS: KCL 40 MEQ PO (10:22)
[2024-05-20] MEDS: NSS IV (12:47)
[2024-05-20 12:49] VITALS: BP 116/66
[2024-05-20 13:04] VITALS: BMI 28.5
--- NOTE | 2024-05-20 14:45 | W.PN.GI.CBS2 ---
Addendum entered and electronically signed by Kassi Rosenthal DO 05/20/24 14:52:
please hold heparin at 3am for EGD tomorrow
Original Note:
Today's Communication / Plan
-
-- NPO for EGD tomorrow
- change diet to LRD in setting of large hiatal hernia
- EGD then esophagram
Assessment / Plan
-
83-year-old female with past medical history of paroxysmal A-fib status post multiple cardioversions, GERD, large hiatal hernia, hypertension, hyperlipidemia, depression, anxiety, chronic vertigo, IBS who was here for planned cardioversion that was
successful on 05/18/2024. This was successful. Patient was maintained on Eliquis. Last evening she developed indigestion which she states is usually a monthly issue for her. She had abrupt onset of nausea and vomiting with coffee-ground emesis.
Asked to evaluate for the same. Hemoglobin stable 13.2. Has had approximately 4 small episodes of coffee-ground emesis. Continues to have small episodes of vomiting at present time. Epigastric discomfort with radiation through the back relieved
by vomiting. History of large hiatal hernia. On omeprazole 40 mg as an outpatient. Cardiac ablation on for with need to be on anticoagulation.
last eliquis 05/18 at 1947, now on heparin
Impression:
Coffee-ground emesis
Epigastric discomfort
Large hiatal hernia per patient report
Chronic GERD, intermittent episodes nausea and vomiting as outpatient
Cardioversion 05/18/2024 with need for anticoagulation
Plan:
-Continue Pantoprazole BID
-- Currently on a cholesterol-lowering diet, will change to low residue in the setting of a large hiatal hernia
--I did review her prior imaging including her CT of her chest showing majority of her stomach in her chest which is likely the cause of a lot of her GI symptoms
--In the setting of coffee-ground emesis with a drop in hemoglobin today we will proceed with endoscopy tomorrow
--Hold heparin at 3 AM
--After the endoscopy we will go ahead with a barium esophagram to get a layout of her hiatal hernia which may need repaired since she is symptomatic
--Follow-up here with us in the outpatient setting since her previous GI doctor, Dr. Olmstead retired
.
Subjective
Subjective
Date of Service: May 20, 2024
Denies any further nausea vomiting or coffee-ground emesis. Has not had a bowel movement and states she has been on iron and has had dark stools that are formed and has never had melena
Objective
Data Reviewed
Laboratory Data:
Laboratory Results
05/20/24 02:37
05/20/24 02:37
Laboratory Results
APTT 97.8 Sec (23.4-35.0) H 05/20/24 09:24
Magnesium 2.5 mg/dl (1.6-2.3) H 05/20/24 02:37
Total Bilirubin 0.6 mg/dl (0.2-1.3) 05/19/24 12:37
AST 47 U/L (14-36) H 05/19/24 12:37
ALT 22 U/L (0-35) 05/19/24 12:37
Alkaline Phosphatase 57 U/L (38-126) 05/19/24 12:37
Lipase 201 U/L (23-300) 05/20/24 02:37
Vital Signs and I&O:
Vital Signs
Temp Pulse Resp BP Pulse Ox
98.4 F 67 16 116/66 93
05/20/24 12:49 05/20/24 14:00 05/20/24 12:49 05/20/24 12:49 05/20/24 12:49
I&O
05/19/24 05/20/24 05/21/24
06:59 06:59 06:59
Intake Total 1290 / 1290
Output Total 250 / 250
Balance 1290 / 1290 -250 / -250
Physical Exam
Physical Exam
HEENT: Anicteric
GI: Soft, Non Distended and Non Tender
Extremities: No Edema
Neuro: Non Focal
--- NOTE | 2024-05-20 16:45 | PTCARENOTE ---
Pt denies any nausea today. She has been jakub meals well. Her appetite has greatly improved.
[2024-05-20 17:39] VITALS: BP 99/60
[2024-05-20] MEDS: NORVASC 5 MG PO (17:43)
[2024-05-20] MEDS: FEOSOL 325 MG PO (17:43)
[2024-05-20] MEDS: MAG-TAB SR 84 MG PO (17:43)
[2024-05-20] MEDS: PRAVACHOL 10 MG PO (17:43)
[2024-05-20] MEDS: HEPARIN 25000 UNITS/250 ML IV (17:45)
[2024-05-20 18:35] LABS: APTT 103.5 Sec (23.4-35.0)
[2024-05-20 19:47] VITALS: BP 123/59
[2024-05-20 22:31] VITALS: BP 106/49
--- NOTE | 2024-05-20 22:52 | PTCARENOTE ---
Received patient at change of shift. SR on the monitor, HR in the 60s. Heparin running as per protocol, see documentation. Discussed NPO at midnight with pt, pt verbalizes understanding. No complaints from pt at this time, call [place] within reach.
[2024-05-21] VITALS (11 sets, daily range): BP systolic 23–131; BP diastolic 35–67
[2024-05-21 03:56] LABS: Hematocrit 30.6 % (37.0-47.0); Mean Corp Hgb Conc. 32.7 g/dL (33.0-37.0); Mean Corpuscular Hgb 29.6 pg (27.0-31.0); Mean Corpuscular Volume 90.5 fL (81.0-99.0); Mean Platelet Volume 9.7 fL (7.4-10.4); Platelet Count 216 10^3/uL (130-400); Red Blood Cell Count 3.38 10^6/uL (4.20-5.40); Red Cell Dist. Width 15.7 % (11.5-14.5); White Blood Cell Count 8.7 10^3/uL (4.8-10.8)
[2024-05-21 04:35] LABS: ALT (SGPT) 15 U/L (0-35); AST (SGOT) 29 U/L (14-36); Albumin 3.1 g/dl (3.5-5.0); Alkaline Phosphatase 63 U/L (38-126); Blood Urea Nitrogen 24 mg/dl (7-17); Calcium 7.3 mg/dl (8.4-10.2); Carbon Dioxide 29 mmol/L (22-30); Chloride 100 mmol/L (98-107); Estimated Creatinine Clearance 50 ml/min; Glucose 86 mg/dl (70-99); Potassium 3.5 mmol/L (3.5-5.1); Sodium 135 mmol/L (135-145); Total Bilirubin 0.5 mg/dl (0.2-1.3); Total Protein 5.5 g/dl (6.3-8.2); eGFR > 60.00
[2024-05-21] MEDS: TOPROL XL 75 MG PO ×2 (09:26→20:52)
--- NOTE | 2024-05-21 09:44 | PTCARENOTE ---
Rec'd pt this shift awake and alert. Pt denies pain, denies sob, denies N/V. Pt NPO and sent for EGD at 0800 this am. Pt NSR on monitor. See worklist for VS/I and O and assessments.
--- NOTE | 2024-05-21 10:03 | W.PN.CARDCBS ---
Addendum entered and electronically signed by Jerry Gautam DO 05/21/24 11:37:
I saw and examined the patient.
The Trash Man's note was reviewed and I agree with the note.
Comment:
Plan:
Pt is s/p EGD, for esophagram today
Resume IV Heparin and transition to Eliquis AM
Monitor H/H as outpt
Stable cv status
Original Note:
Today's Communication / Plan
-
s/p EGD with esophagitis and Mike lesions
for esophagram today for hiatal hernia - will need OP eval for surgical repair
resume IV heparin
if hgb stable overnight, resume eliquis in AM
will need CBC early next week
Impression / Plan
-
.
PCP: Danitza Bates MD
CDY: Debby Maynard MD
HPI: 83 y/o, PMH sig for AFib w/prior PVI (03/2023), now with recurrent symptomatic PAF, s/p multiple cardioversions. [id number] maintained on eliquis. She has had no major bleeding complications on OAC.
S/P PFA. Uneventful postoperative course, stable on tele overnight, until late last evening she developed gas pain with indigestion. Ultimately because nauseous with vomiting of heme + coffee ground emesis. She was started on protonix gtt and now GI
has been consulted.
IMPRESSION:
PAF, s/p PFA, 05/18/24
Prior PVI (03/2023)
N/V with coffee ground emesis, resolved
GERD/IBS/large hiatal hernia
HTN
HLD
Glucose intolerance
Hypomagnesemia
Depression/Anxiety
Chronic Vertigo
ECHO 05/2021: EF 60%, isolated basal septal hypertrophy, mild MR, trace AR, mild TR, mild CO
PLAN:
-Patient underwent PFA ablation 05/18/24.
-Then had nausea/vomiting with coffee-ground emesis. Underwent EGD 05/21/2024 with esophagitis and Mike lesions. Also noted to have large hiatal hernia.
-No recurrent symptoms
-Okay to resume IV heparin per GI today
-For esophagram today. Will need outpatient surgical evaluation for hiatal hernia repair
-Continue PPI
-Hemoglobin 10.0 on 05/21. If hemoglobin stable overnight, okay to resume Eliquis and discharge
-Remains in sinus rhythm on review of telemetry overnight. continue OP toprol
-OP cardiac follow up arranged
-d/w nursing. d/w GI via TT.
Progress Note - Ice Hockey Coach
Subjective
Date of Service: May 21, 2024
No nausea/vomiting/abdominal pain overnight
Objective
Labs:
05/21/24 03:12
05/21/24 03:12
Labs
Hgb 10.0 g/dL (12.0-16.0) L 05/21/24 03:12
Hct 30.6 % (37.0-47.0) L 05/21/24 03:12
Plt Count 216 10^3/uL (130-400) 05/21/24 03:12
APTT 103.5 Sec (23.4-35.0) H 05/20/24 18:05
Sodium 135 mmol/L (135-145) 05/21/24 03:12
Potassium 3.5 mmol/L (3.5-5.1) 05/21/24 03:12
BUN 24 mg/dl (7-17) H 05/21/24 03:12
Creatinine 0.7 mg/dL (0.6-1.0) 05/21/24 03:12
Glucose 86 mg/dl (70-99) 05/21/24 03:12
Vital Signs and I&O:
Vital Signs
Temp Pulse Resp BP Pulse Ox
97.7 F 63 24 120/86 94
05/21/24 08:50 05/21/24 09:26 05/21/24 09:05 05/21/24 09:26 05/21/24 09:05
Vital Signs
Temp Pulse Resp BP Pulse Ox
97.7 F 63 24 120/86 94
05/21/24 08:50 05/21/24 09:26 05/21/24 09:05 05/21/24 09:26 05/21/24 09:05
Intake & Output
05/19/24 05/20/24 05/21/24 05/22/24
07:59 07:59 07:59 07:59
Intake Total 1290 / 1290
Output Total 250 / 250
Balance 1290 / 1290 -250 / -250
Physical Exam
Physical Exam
GEN: No distress, awake, alert, oriented x3
HEENT: supple, anicteric, mmm, eomi
LUNGS: CTA B/L, no wheezes
CV: Reg, S1/S2, no murmur
ABD: soft, BS+, NT/ND
EXT: No cyanosis, clubbing, edema
NEURO: Gross non-focal
SKIN: Warm, pink, dry. No rash. R groin site with mild soreness to palpation.
[2024-05-21] MEDS: HEPARIN 25000 UNITS/250 ML IV (10:06)
--- NOTE | 2024-05-21 10:12 | CM ---
Reviewed chart. Met with Mrs. Chan to review discharge plans. She states she is going for tests today. Prior to admission she resides alone in a two story home with one step to enter. She has a first floor set-up. Prior to admission she was
independent with ambulation and adls. She does not have any DME in the home. She has a prescription plan with [facility] and uses [facility]. Medical work-up in progress. The discharge plan is to return home when medically stable.
--- NOTE | 2024-05-21 11:01 | PTCARENOTE ---
Heparin resumed at 800 units/hr. Pt sent to [facility] at this time.
[2024-05-21] MEDS: TRENTAL 400 MG PO (12:14)
[2024-05-21] MEDS: PROZAC 30 MG PO (12:15)
[2024-05-21] MEDS: PROTONIX IV IV (12:25)
--- NOTE | 2024-05-21 16:19 | PTCARENOTE ---
Pt ambulating in room without difficulty. PTT sent on 800 units/hr of Heparin. Pt denies pain, denies sob.
[2024-05-21 16:36] LABS: APTT 55.7 Sec (23.4-35.0)
[2024-05-21] MEDS: PRAVACHOL 10 MG PO (17:22)
[2024-05-21] MEDS: NORVASC 5 MG PO (17:22)
[2024-05-21] MEDS: MAG-TAB SR 84 MG PO (17:22)
--- NOTE | 2024-05-21 18:45 | W.PN.UPDATE ---
Update Note
Progress Note Update
pt seen in courtesy evaluation this evening for her progressively symptomatic large type III/IV PEH
tolerated PO intake for dinner - limited to mash potatoes and other soft food and small portion
we discussed indications for operative correction which should be strongly considered given frequency of recurrent GOO symptoms on a monthly basis for almost the last year now
will further discuss with patient at outpatient follow up if medically cleared for OR from cardiac perspective. would lean towards proceeding with surgery more expediently if possible in the next 4-6 weeks
provided patient with my contact information
my office will also reach out to patient to schedule office follow up with myself within the next 7-10days
advised regarding low fiber, soft diet and small portion sizes limited to about the size of a clenched fist; also recommended protein shakes BID to supplement caloric intake while diet is limited
patient appreciative of our discussions. any of her current concerns or questions were addressed and will be further discussed in more detail at formal outpatient consultation.
thank you
[2024-05-21] MEDS: NSS (PRESERVATIVE FREE) 10 ML IV (20:52)
[2024-05-21] MEDS: PROTONIX IV 40 MG IV (20:52)
--- NOTE | 2024-05-22 02:09 | PTCARENOTE ---
Received patient at change of shift. SR on the monitor, HR in the 60s. Heparin running as per protocol, see documentation. No complaints from pt at this time, call [place] within reach.
[2024-05-22 02:20] VITALS: BP 107/59
[2024-05-22 06:00] LABS: Hematocrit 27.9 % (37.0-47.0); Hemoglobin 9.3 g/dL (12.0-16.0); Mean Corp Hgb Conc. 33.3 g/dL (33.0-37.0); Mean Corpuscular Hgb 29.9 pg (27.0-31.0); Mean Corpuscular Volume 89.7 fL (81.0-99.0); Mean Platelet Volume 9.4 fL (7.4-10.4); Platelet Count 185 10^3/uL (130-400); Red Blood Cell Count 3.11 10^6/uL (4.20-5.40); Red Cell Dist. Width 15.6 % (11.5-14.5); White Blood Cell Count 6.9 10^3/uL (4.8-10.8)
[2024-05-22 06:29] LABS: APTT 110.6 Sec (23.4-35.0)
[2024-05-22 06:46] VITALS: BP 116/67
--- NOTE | 2024-05-22 08:17 | W.PN.CARDCBS ---
Addendum entered and electronically signed by Miguel Lara MD 05/22/24 09:19:
I saw and examined the patient.
The Shearing Machine Operator's note was reviewed and I agree with the note.
Comment: Briefly, 83-year-old woman who presented initially for atrial fibrillation ablation 05/19/2024 and experienced episode of nausea and vomiting with coffee-ground emesis
Underwent GI workup including EGD which showed large hiatal hernia with Mike lesions
Plan to transition from IV heparin to p.o. Eliquis today, appreciate GI recommendations
Stable for discharge from my perspective
Outpatient follow-up and repeat labs have been arranged
Original Note:
Today's Communication / Plan
-
hgb down slightly to 9.3 on IV heparin but no evidence of active bleeding
transition to eliquis
repeat CBC and iron panel in 1 week
in SR
OP surgical follow up
OP cardiac follow up arranged
for DC
Impression / Plan
-
.
PCP: Danitza Bates MD
CDY: Debby Maynard MD
HPI: 83 y/o, PMH sig for AFib w/prior PVI (03/2023), now with recurrent symptomatic PAF, s/p multiple cardioversions. [id number]=2 maintained on eliquis. She has had no major bleeding complications on OAC.
S/P PFA. Uneventful postoperative course, stable on tele overnight, until late last evening she developed gas pain with indigestion. Ultimately because nauseous with vomiting of heme + coffee ground emesis. She was started on protonix gtt and now GI
has been consulted.
IMPRESSION:
PAF, s/p PFA, 05/18/24
Prior PVI (03/2023)
N/V with coffee ground emesis, resolved
GERD/IBS/large hiatal hernia
HTN
HLD
Glucose intolerance
Hypomagnesemia
Depression/Anxiety
Chronic Vertigo
ECHO 05/2021: EF 60%, isolated basal septal hypertrophy, mild MR, trace AR, mild TR, mild WY
PLAN:
-Patient underwent PFA ablation 05/18/24.
-Then had nausea/vomiting with coffee-ground emesis. Underwent EGD 05/21/2024 with esophagitis and Mike lesions. Also noted to have large hiatal hernia.
-No recurrent symptoms
-remains on IV heparin without abd pain, dark or bloody stools, or recurrent vomiting. plan to transition to eliquis today. hgb down slightly to 9.3. will have patient repeat CBC and iron panel in 1 week
-appreciate surgical input. for OP follow up with Dr. Landin for surgical repair of large hiatal hernia
-Continue PPI BID
-Remains in sinus rhythm on review of telemetry overnight. continue OP toprol
-OP cardiac follow up arranged
-ok for DC to home today
-total DC time 36 minutes
-d/w GI
#[id number]
Progress Note - Blind Installer
Subjective
Date of Service: May 22, 2024
No issues overnight. Denies abdominal pain, dark or bloody stools, or recurrent vomiting
Objective
Labs:
05/22/24 05:41
05/21/24 03:12
Labs
Hgb 9.3 g/dL (12.0-16.0) L 05/22/24 05:41
Hct 27.9 % (37.0-47.0) L 05/22/24 05:41
Plt Count 185 10^3/uL (130-400) 05/22/24 05:41
APTT 110.6 Sec (23.4-35.0) H 05/22/24 05:41
Sodium 135 mmol/L (135-145) 05/21/24 03:12
Potassium 3.5 mmol/L (3.5-5.1) 05/21/24 03:12
BUN 24 mg/dl (7-17) H 05/21/24 03:12
Creatinine 0.7 mg/dL (0.6-1.0) 05/21/24 03:12
Glucose 86 mg/dl (70-99) 05/21/24 03:12
Vital Signs and I&O:
Vital Signs
Temp Pulse Resp BP Pulse Ox
98.5 F 66 20 116/67 95
05/22/24 06:45 05/22/24 08:00 05/22/24 06:45 05/22/24 06:46 05/22/24 06:45
Vital Signs
Temp Pulse Resp BP Pulse Ox
98.5 F 66 20 116/67 95
05/22/24 06:45 05/22/24 08:00 05/22/24 06:45 05/22/24 06:46 05/22/24 06:45
Intake & Output
05/20/24 05/21/24 05/22/24 05/23/24
07:59 07:59 07:59 07:59
Intake Total 500 / 500
Output Total 250 / 250 3 / 3
Balance -250 / -250 497 / 497
Physical Exam
Physical Exam
GEN: No distress, awake, alert, oriented x3
HEENT: supple, anicteric, mmm, eomi
LUNGS: CTA B/L, no wheezes/rales
CV: Reg, S1/S2, no murmur
ABD: soft, BS+, NT/ND
EXT: No cyanosis, clubbing, edema
NEURO: Gross non-focal
SKIN: Warm, pink, dry. No rash
--- NOTE | 2024-05-22 08:41 | W.DS.TRANS ---
DC Summary - Petrology Teacher
-
Discharge Instructions:
Sleep Apnea Risk Low
Discharge Diagnosis/Procedures AFib, s/p ablation, hematemesis, large hiatal
hernia
Diet Low Cholesterol,Other diet
Additional Diets low fiber, soft foods, and small portions.
should take protein shakes twice daily
Driving Restrictions No driving for 24 hours
Bathing Restrictions None
Blood Work CBC and iron panel in 1 week with results to GI
Instructions:
Stand-Alone Forms: DC Instructions- Cath/EP Lab
Changes to Home Medications: Yes
Discharge Medications:
DC Medications w/original date entered in [employer]
apixaban 5 mg tablet (Eliquis) 5 mg PO BID Blood Clot Prevention/Tx 11/15/20
pravastatin 10 mg tablet 10 mg PO QPM High Cholesterol 11/15/20
fluoxetine 20 mg capsule 30 mg PO DAILY Depression 06/26/21
pentoxifylline 400 mg tablet,extended release 400 mg PO DAILY Blood Clot Prevention/Tx 06/26/21
ferrous sulfate 325 mg (65 mg iron) tablet 325 mg PO QPM Supplement 10/24/22
calcium carbonate 1,000 mg PO DAILY 03/18/23
coenzyme Q10 100 mg capsule (CoQ-10) 100 mg PO QPM 03/18/23
cyanocobalamin (vitamin B-12) 1,000 mcg tablet (Vitamin B-12) 1,000 mcg PO QPM 04/01/23
metoprolol succinate 50 mg tablet,extended release 24 hr 75 mg PO BID 04/01/23
amlodipine 5 mg tablet 5 mg PO QPM #90 tabs 04/02/23
ascorbic acid (vitamin C) 500 mg tablet (Vitamin C) 500 mg PO QPM 05/18/24
cholecalciferol (vitamin D3) 25 mcg (1,000 unit) capsule (Vitamin D3) 25 mcg PO DAILY 05/18/24
denosumab 60 mg/mL subcutaneous syringe (Prolia) 60 mg SC [id number] 05/18/24
magnesium 200 mg tablet 400 mg PO QPM 05/18/24
multivitamin 1 tab PO QPM 05/18/24
pantoprazole 40 mg tablet,delayed release 40 mg PO BID #180 tabs 05/22/24
Home Medication Changes
stop omeprazole, now on pantoprazole BID
Pending Results: No
[2024-05-22] MEDS: NSS (PRESERVATIVE FREE) 10 ML IV (09:15)
[2024-05-22] MEDS: PROTONIX IV 40 MG IV (09:16)
[2024-05-22] MEDS: TOPROL XL 75 MG PO (09:17)
[2024-05-22] MEDS: PROZAC PO (09:17)
[2024-05-22] MEDS: TRENTAL 400 MG PO (09:18)
[2024-05-22] MEDS: ELIQUIS 5 MG PO (09:18)
--- NOTE | 2024-05-22 10:42 | CM ---
Reviewed chart. Met with Mrs. Chan to review discharge plans. She states she is feeling better and maybe able to go home soon. She states she will be coming back for general surgery. Prior to admission she resides alone in a two story home
with one step to enter. She has a first floor set-up. Prior to admission she was independent with ambulation and adls, She walden not have any DME in the home. She has a prescription plan and uses [facility]. Medial work-up in progress. The
discharge plan is to return home when medically stable.
--- NOTE | 2024-05-22 10:56 | W.PN.GI.CBS2 ---
Today's Communication / Plan
-
Ok to resume anticoagulation today
Labs (CBC and iron panel) in 1wk --slip provided
GI office will call to arrange OP FU with Dr Rosenthal
GI will sign off please call for ?
Assessment / Plan
-
83-year-old female with past medical history of paroxysmal A-fib status post multiple cardioversions, GERD, large hiatal hernia, hypertension, hyperlipidemia, depression, anxiety, chronic vertigo, IBS who was here for planned cardioversion that was
successful on 05/18/2024. This was successful. Patient was maintained on Eliquis. Last evening she developed indigestion which she states is usually a monthly issue for her. She had abrupt onset of nausea and vomiting with coffee-ground emesis.
Asked to evaluate for the same. Hemoglobin stable 13.2. Has had approximately 4 small episodes of coffee-ground emesis. Continues to have small episodes of vomiting at present time. Epigastric discomfort with radiation through the back relieved
by vomiting. History of large hiatal hernia. On omeprazole 40 mg as an outpatient. Cardiac ablation on for with need to be on anticoagulation.
last eliquis 05/18 at 1947, now on heparin
Impression:
Coffee-ground emesis
Epigastric discomfort
Large hiatal hernia per patient report
Chronic GERD, intermittent episodes nausea and vomiting as outpatient
Cardioversion 05/18/2024 with need for anticoagulation
Plan:
-Continue Pantoprazole BID senior living
-C/w low residue diet
-Given stable H/H and no further bloody output reasonable to resume eliquis
-Appreciate surgical recommenations
Repeat labs in 1wk-slip provided
GI office will call to set her up with FU appt with Dr Rosenthal
Above d/w primary team. GI will sign off please call for questions
Subjective
Subjective
Date of Service: May 22, 2024
Passed BM this AM. Denies abd pain, nausea or vomiting. Tolerating diet
Objective
Data Reviewed
Laboratory Data:
Laboratory Results
05/22/24 05:41
05/21/24 03:12
Laboratory Results
APTT Cancelled 05/22/24 12:45
Magnesium 2.5 mg/dl (1.6-2.3) H 05/20/24 02:37
Total Bilirubin 0.5 mg/dl (0.2-1.3) 05/21/24 03:12
AST 29 U/L (14-36) 05/21/24 03:12
ALT 15 U/L (0-35) 05/21/24 03:12
Alkaline Phosphatase 63 U/L (38-126) 05/21/24 03:12
Lipase 201 U/L (23-300) 05/20/24 02:37
Vital Signs and I&O:
Vital Signs
Temp Pulse Resp BP Pulse Ox
98.5 F 66 20 116/67 95
05/22/24 06:45 05/22/24 08:00 05/22/24 06:45 05/22/24 06:46 05/22/24 09:28
I&O
05/21/24 05/22/24 05/23/24
06:59 06:59 06:59
Intake Total 500 / 500
Output Total 3 / 3
Balance 497 / 497
Physical Exam
Physical Exam
GEN: No acute distress, conversant, pleasant
HEENT: anicteric, extraocular movements intact, clear oropharynx without exudates
GI: soft, non-distended, not tender to palpation, normal active bowel sounds, no hepatosplenomegaly
EXT: warm, well perfused, no edema bilaterally ++khyphosis
NEURO: AAOx3, non-focal
[2024-05-22 11:36] VITALS: BP 113/63
--- NOTE | 2024-05-22 12:38 | PTCARENOTE ---
Pt seen by Sole Allison NP and Dr.Hannah Rosenberg. Pt reports a normal bowel movement today. Telemetry and IV device removed. Discharge instructions reviewed with pt regarding low fiber diet, activity guidelines, medications and their possible side
effects, wound care, reporting cares and concerns and follow up apppts. Excellent understanding taught back to RN. Pt escorted out via wheelchair and will drive herself home ( greater than 24 hours since sedation was given).
== END 2024-05-22 12:42 | disposition home or self-care (01) | DRG 981 ==
LOC: IVU 01:00
PROVIDERS: Internal Medicine; Internal Medicine Cardiovascular Disease; Nuclear Medicine Nuclear Cardiology; Nurse Practitioner; Physician Assistant; ADMITTING PHYSICIAN Internal Medicine Cardiovascular Disease; CONSULT PHYSICIAN Surgery; FAMILY PHYSICIAN Family Medicine; OTHER PHYSICIAN Internal Medicine Gastroenterology
PROC: 4A0234Z Measurement of Cardiac Electrical Activity, Percutaneous Approach (ICD-10-PCS; 2024-05-18)
PROC: 02K83ZZ Map Conduction Mechanism, Percutaneous Approach (ICD-10-PCS; 2024-05-18)
PROC: 4A023FZ Measurement of Cardiac Rhythm, Percutaneous Approach (ICD-10-PCS; 2024-05-18)
PROC: 5A2204Z Restoration of Cardiac Rhythm, Single (ICD-10-PCS; 2024-05-18)
PROC: 02583ZF Destruction of Conduction Mechanism using Irreversible Electroporation, Percutaneous Approach (ICD-10-PCS; 2024-05-18)
PROC: 0DB68ZX Excision of Stomach, Via Natural or Artificial Opening Endoscopic, Diagnostic (ICD-10-PCS; 2024-05-21)
PROC: 0DB98ZX Excision of Duodenum, Via Natural or Artificial Opening Endoscopic, Diagnostic (ICD-10-PCS; 2024-05-21)
DX: K25.4 Chronic or unspecified gastric ulcer with hemorrhage (principal); K21.01 Gastro-esophageal reflux disease with esophagitis, with bleeding; D62 Acute posthemorrhagic anemia; I48.19 Other persistent atrial fibrillation; I47.19 Other supraventricular tachycardia; I10 Essential (primary) hypertension; E78.00 Pure hypercholesterolemia, unspecified; F32.A Depression, unspecified; F41.9 Anxiety disorder, unspecified; K44.9 Diaphragmatic hernia without obstruction or gangrene; K58.9 Irritable bowel syndrome, unspecified; E74.39 Other disorders of intestinal carbohydrate absorption; E83.42 Hypomagnesemia; K31.89 Other diseases of stomach and duodenum; Z79.01 Long term (current) use of anticoagulants
CPT/HCPCS: 88305; 88312; 74018; 74221; 80048; 80053; 80076; 83690; 83735; 85027; 85347; 85730; 88342; 93005; 93656; 93657; C1730; C1732; C1733; C1766; C1892; C1894

== ENCOUNTER → 2024-06-30 15:13 | Outpatient (REF) | payer MEDICARE, OTHER, SELFPAY | LOC: RCS 15:13 | PROVIDERS: ATTENDING PHYSICIAN Physician Assistant; FAMILY PHYSICIAN Family Medicine | DX: I48.91 Unspecified atrial fibrillation (principal); I10 Essential (primary) hypertension; I34.0 Nonrheumatic mitral (valve) insufficiency | CPT/HCPCS: 93306 ==

== ENCOUNTER → 2024-07-02 10:41 | Outpatient (REF) | payer MEDICARE, OTHER, SELFPAY ==
[2024-07-02 11:29] LABS: Hematocrit 43.1 % (37.0-47.0); Hemoglobin 14.6 g/dL (12.0-16.0); Mean Corp Hgb Conc. 33.9 g/dL (33.0-37.0); Mean Corpuscular Hgb 30.4 pg (27.0-31.0); Mean Corpuscular Volume 89.6 fL (81.0-99.0); Mean Platelet Volume 9.9 fL (7.4-10.4); Platelet Count 244 10^3/uL (130-400); Red Blood Cell Count 4.81 10^6/uL (4.20-5.40); Red Cell Dist. Width 14.1 % (11.5-14.5); White Blood Cell Count 7.6 10^3/uL (4.8-10.8)
[2024-07-02 12:46] LABS: ALT (SGPT) 21 U/L (0-35); AST (SGOT) 28 U/L (14-36); Albumin 4.3 g/dl (3.5-5.0); Alkaline Phosphatase 61 U/L (38-126); Blood Urea Nitrogen 17 mg/dl (7-17); Calcium 9.1 mg/dl (8.4-10.2); Carbon Dioxide 25 mmol/L (22-30); Chloride 100 mmol/L (98-107); Glucose 94 mg/dl (70-99); Potassium 4.3 mmol/L (3.5-5.1); Sodium 136 mmol/L (135-145); Total Bilirubin 0.9 mg/dl (0.2-1.3); Total Protein 6.9 g/dl (6.3-8.2); eGFR > 60.00
== END ==
LOC: SDSPAT 10:41
PROVIDERS: ATTENDING PHYSICIAN Surgery; FAMILY PHYSICIAN Family Medicine; OTHER PHYSICIAN Internal Medicine Cardiovascular Disease
DX: Z01.818 Encounter for other preprocedural examination (principal)
CPT/HCPCS: 36415; 80053; 85027; 86850; 86900; 86901

== ENCOUNTER 2024-07-06 10:38 | Inpatient (IN) | payer MEDICARE, OTHER, SELFPAY ==
[2024-07-02 14:07] VITALS: BMI 27.5
[2024-07-03] VITALS (11 sets, daily range): BP systolic 138–165; BP diastolic 68–85; BMI 27.5
--- NOTE | 2024-07-03 06:51 | HP.FOC2 ---
Focused History & Physical
Chief Complaint
HPI:
Chief Complaint: Symptomatic paraesophageal hernia
HPI / Indication for Planned Procedure: Patient is a 83-year-old female presenting for scheduled operative correction of a large symptomatic type IV paraesophageal hernia containing her entire stomach within the intrathoracic space to the level of
the pylorus. She has been having intermittent obstructive symptoms with nausea/vomiting and epigastric abdominal pain. Symptoms are alleviated by inducing vomiting or regurgitation. Generally not much dysphagia. Bowels have been moving regularly.
Relevant Past Medical History: Other (Depression with anxiety, atrial fibrillation, hypertension, IBD/SIBO, type IV paraesophageal hernia)
Relevant Social History: Negative
Relevant Family History: Negative
Relevant Past Surgical History: Positive for (Removal of left breast cyst, cardioversions, ablation)
Review of Systems
Review of Pertinent Systems: All Systems Negative
Medication
See Medication form for detailed medications: Yes
Medication List (including Herbals & OTC):
apixaban 5 mg tablet (Eliquis) 5 mg PO BID Blood Clot Prevention/Tx 11/15/20
pravastatin 10 mg tablet 10 mg PO QPM High Cholesterol 11/15/20
fluoxetine 20 mg capsule 30 mg PO DAILY Depression 06/26/21
pentoxifylline 400 mg tablet,extended release 400 mg PO DAILY Blood Clot Prevention/Tx 06/26/21
ferrous sulfate 325 mg (65 mg iron) tablet 325 mg PO QPM Supplement 10/24/22
calcium carbonate 1,000 mg PO QPM 03/18/23
coenzyme Q10 100 mg capsule (CoQ-10) 100 mg PO QPM 03/18/23
metoprolol succinate 50 mg tablet,extended release 24 hr 75 mg PO BID 04/01/23
amlodipine 5 mg tablet 5 mg PO QPM #90 tabs 04/02/23
ascorbic acid (vitamin C) 500 mg tablet (Vitamin C) 500 mg PO QPM 05/18/24
denosumab 60 mg/mL subcutaneous syringe (Prolia) 60 mg SC [id number] 05/18/24
magnesium 200 mg tablet 400 mg PO DAILY 05/18/24
multivitamin 1 tab PO QPM 05/18/24
pantoprazole 40 mg tablet,delayed release 40 mg PO BID #180 tabs 05/22/24
acetaminophen 650 mg tablet,extended release 1,300 mg PO PRN PRN pain 06/26/24
cyanocobalamin (vitamin B-12) 1,000 mcg tablet (Vitamin B-12) 1,000 mcg PO QPM 06/26/24
furosemide 20 mg tablet 20 mg PO DAILY PRN Ankle Edema 06/26/24
Medications Reviewed: Yes
Allergies and Reactions
Patient has Allergies: Yes
Noted Allergies and Reactions:
Allergy/AdvReac Type Severity Reaction Status Date / Time
amoxicillin [From Augmentin] Allergy Rash Verified 06/26/24 11:13
clavulanic acid Allergy Rash Verified 06/26/24 11:13
[From Augmentin]
Penicillins Allergy Rash Verified 06/26/24 11:13
Pertinent Physical Exam
All Other Systems: Negative
Head/Neck: Normal
Lungs: Normal
Heart: Normal
Abdomen: Normal
Extremities: Normal
Neurological: Normal
Diagnosis / Assessment
83-year-old female presenting for scheduled operative correction symptomatic type IV paraesophageal hernia
Plan / Procedure
Robotic assisted laparoscopic repair paraesophageal hernia with gastropexy and possible intraoperative EGD
Anesthesia/Sedation to be done by Anesthesia Provider: Yes
--- NOTE | 2024-07-03 06:58 | W.SUR.PREOP ---
Pre-Operative Surgical Note
-
I have examined this patient prior to the performance of the scheduled procedure.
The patient's condition is unchanged from the time of the current History and
Physical and the patient is able to undergo the scheduled procedure.
[2024-07-03] MEDS: NORMOSOL-R/PLASMALYTE-A 1000 IV (08:25)
[2024-07-03] MEDS: TYLENOL 1000 MG PO (08:36)
--- NOTE | 2024-07-03 13:37 | W.IMMPOSTOP ---
Addendum entered and electronically signed by Deejay Landin MD 07/14/24 16:42:
#[id number]
Original Note:
Surgical Immed Post Op Note
-
Primary Surgeon: Deejay Fox MD
Assisting Surgeon: Richard RAWLS
Pre-op Diagnosis: Type IV paraesophageal hernia
Post-op Diagnosis: Type IV paraesophageal hernia
Procedure Performed: Robotic assisted laparoscopic paraesophageal hernia repair with anterior gastropexy; EGD
Anesthesia Type: GETA +0.25% Marcaine
Specimen / Cultures: None/none
Estimated Blood Loss: 20 mL
Complications: None immediate
Operative Findings: Large type IV paraesophageal hernia containing entire stomach up to the level pylorus. Chronic organoaxial volvulus. Entire hernia sac and contents reduced. Crural closure posteriorly (5) and right anterior(2)/left anterior(2)
with interrupted 0 silk suture. Anterior gastropexy along greater curvature of body of stomach to left costal margin with interrupted 0 silk suture. EGD with chronic gastritis. No ulcers. Entry into right pleural space during mobilization of
esophagus.
Drains: 19 Pete transabdominal into posterior mediastinal space.
--- NOTE | 2024-07-03 15:00 | PTCARENOTE ---
Telephone report received from ADJUNCT PSYCHOLOGY INSTRUCTORCOREY Cazares; patient arrived in bed @15:00 with IVF infusing, O2 3L, VSS; admission history obtained at bedside.
[2024-07-03] MEDS: DILAUDID 0.25 MG IV ×2 (15:51→20:05)
[2024-07-03] MEDS: NSS 1000 IV (15:51)
[2024-07-03] MEDS: NORVASC 5 MG PO (17:45)
[2024-07-03] MEDS: TOPROL XL 75 MG PO (20:04)
[2024-07-03] MEDS: HEPARIN 5000 UNITS SC (20:05)
[2024-07-04] VITALS (7 sets, daily range): BP systolic 143–172; BP diastolic 76–103; PULSE 52–54; O2SAT 90–92
[2024-07-04] MEDS: DILAUDID 0.25 MG IV ×3 (02:31→13:36)
[2024-07-04] MEDS: NSS 1000 IV (02:34)
--- NOTE | 2024-07-04 03:30 | PTCARENOTE ---
Increased oxygen from 3L to 5L as pt's SaO2 90% on 3L NC. No increased WOB noted. Will continue to monitor.
[2024-07-04 07:44] LABS: Hemoglobin 13.3 g/dL (12.0-16.0); Mean Corp Hgb Conc. 34.1 g/dL (33.0-37.0); Mean Corpuscular Volume 90.9 fL (81.0-99.0); Mean Platelet Volume 10.2 fL (7.4-10.4); Platelet Count 199 10^3/uL (130-400); Red Blood Cell Count 4.29 10^6/uL (4.20-5.40)
[2024-07-04 08:04] LABS: Blood Urea Nitrogen 10 mg/dl (7-17); Calcium 8.1 mg/dl (8.4-10.2); Carbon Dioxide 27 mmol/L (22-30); Chloride 101 mmol/L (98-107); Estimated Creatinine Clearance 60 ml/min; Glucose 94 mg/dl (70-99); Potassium 3.7 mmol/L (3.5-5.1); Sodium 135 mmol/L (135-145); eGFR > 60.00
--- NOTE | 2024-07-04 09:04 | W.PN.GS2 ---
Today's Communication / Plan
-
Full
Assessment / Plan
-
This is an 83-year-old female status post robotic type IV hiatal hernia repair and placement of a HARI for capnothorax
Incentive spirometry, wean patient off O2
Will plan for fulls for lunchtime
Anticipate discharge home tomorrow, will remove HARI prior to discharge.
Time Spent
Total Time Spent with Patient (in minutes): 20
Subjective Data
-
Date of Service: July 04, 2024
Interval Events:
No acute events overnight. Slept well. Pain Controlled. Denies Nausea/Vomiting. Tolerating diet.
Objective Data
-
Intake and Output
07/03/24 07/04/24 07/05/24
06:59 06:59 06:59
Intake Total 1460 / 1460
Output Total 1713 / 1713
Balance -253 / -253
Intake:
Oral fluids 160 / 160
IV fluids (Total) 1300 / 1300
normosol 100 / 100
Output:
Drain Output (Total) 38 / 38
Left Abdomen 38 / 38
Urine, Lan 1675 / 1675
Vital Signs
Temp Pulse Resp BP Pulse Ox
97.6 F 59 16 172/82 93
07/04/24 07:09 07/04/24 07:09 07/04/24 07:09 07/04/24 07:09 07/04/24 07:09
Lab Results
07/04/24 06:27
07/04/24 06:27
Calcium 8.1 mg/dl (8.4-10.2) L 07/04/24 06:27
Physical Exam
-
GENERAL/NEURO: Awake, Alert, no distress
CHEST: Unlabored breathing on nasal cannula
ABDOMEN: Soft, Non-Tender, Non-Distended, incisions clean dry and intact, HARI serous sang
Patient has a lan catheter: No
Patient has a central line: No
[2024-07-04] MEDS: NSS (PRESERVATIVE FREE) 10 ML IV (09:23)
[2024-07-04] MEDS: PROTONIX IV 40 MG IV (09:23)
[2024-07-04] MEDS: TOPROL XL 75 MG PO ×2 (09:24→19:31)
[2024-07-04] MEDS: PROZAC 30 MG PO (09:24)
[2024-07-04] MEDS: HEPARIN 5000 UNITS SC ×2 (09:24→19:31)
--- NOTE | 2024-07-04 15:18 | CM ---
CM met with pt at bedside.
Pt resides alone in a 2SH with FF set up. 1 efren. Owns a RW but does not use AD for ambulation. Ind with amb/adl's.
Confirmed PCP is Danitza Bates. [facility]acy is [facility].
Pt has no HC or SNF history. Offered choice of home care agency if recc'd. No preference. Agreeable to VN if recc'd.
Pt currently on room air at time of assessment. Tells CM they are going to walk her shortly on room air to check for oxygen needs. Also currently has a drain however has been told it will be dc'd before dc.
If pt is to dc with a drain, wants VN.
CM to follow closely and watch for needs.
DC dispo is home no needs VS VN with [facility] VN and poss oxygen needs.
[2024-07-04] MEDS: NSS IV (15:34)
[2024-07-04] MEDS: NORVASC 5 MG PO (17:36)
[2024-07-04] MEDS: TYLENOL 650 MG PO (19:02)
[2024-07-04] MEDS: BENADRYL 25 MG PO (22:08)
--- NOTE | 2024-07-04 23:54 | PTCARENOTE ---
[facility] Provider, Emy Jerome, that pt's HR 130s. On auscultation, HR was irregular. BP 148/103. Asked about getting and EKG and placing pt on tele, to which Emy said yes. EKG obtained, showing AFlutter. Pt now on heart monitor, HR
jumping between 90s-120s, appears to be in AFib. Will continue to monitor.
[2024-07-05] MEDS: LOPRESSOR 5 MG IV ×3 (00:29→12:38)
[2024-07-05 03:28] VITALS: BP 144/108
[2024-07-05 05:56] LABS: Hematocrit 41.2 % (37.0-47.0); Hemoglobin 13.7 g/dL (12.0-16.0); Mean Corp Hgb Conc. 33.3 g/dL (33.0-37.0); Mean Corpuscular Hgb 30.2 pg (27.0-31.0); Mean Corpuscular Volume 90.9 fL (81.0-99.0); Mean Platelet Volume 10.1 fL (7.4-10.4); Platelet Count 210 10^3/uL (130-400); Red Blood Cell Count 4.53 10^6/uL (4.20-5.40); Red Cell Dist. Width 14.1 % (11.5-14.5); White Blood Cell Count 7.7 10^3/uL (4.8-10.8)
[2024-07-05 06:14] LABS: Blood Urea Nitrogen 9 mg/dl (7-17); Calcium 8.5 mg/dl (8.4-10.2); Carbon Dioxide 27 mmol/L (22-30); Chloride 101 mmol/L (98-107); Estimated Creatinine Clearance 60 ml/min; Glucose 91 mg/dl (70-99); Potassium 3.3 mmol/L (3.5-5.1); Sodium 136 mmol/L (135-145); eGFR > 60.00
[2024-07-05] MEDS: KCL 40 MEQ PO (06:51)
--- NOTE | 2024-07-05 07:16 | W.PN.GS2 ---
Addendum entered and electronically signed by Ramirez Phipps MD 07/05/24 15:25:
Patient remains in A-fib with occasional RVR despite home dose and IV as needed doses of Lopressor. Cardiology group consulted to assist with management
Once absolutely indicated, would prefer to hold off on anticoagulation until tomorrow.
Addendum entered and electronically signed by Ramirez Phipps MD 07/05/24 15:15:
I saw and examined the patient independently.
The resident's documentation was reviewed and I agree with the note, assessment and plan except where noted below.
Comment: Atrial fibrillation overnight, Lopressor added
Will keep on fulls
HARI removed
Anticipate discharge home tomorrow pending rate control
Continue to hold anticoagulation
Original Note:
Today's Communication / Plan
-
Additional 5 IV lopressor this AM for rate control under 100 bpm
Continue incentive spirometry
Will continue to hold Eliquis until 72 hours after operation
OOB to ambulate today
DC HARI later today
Potentia discharge later today vs tomorrow
Assessment / Plan
-
This is an 83-year-old female status post robotic type IV hiatal hernia repair and placement of a HARI for capnothorax. Now back into Afib/flutter overnight. Remains anxious.
Additional 5 IV lopressor this AM for rate control under 100 bpm
Continue incentive spirometry
Will continue to hold Eliquis until 72 hours after operation
OOB to ambulate today
DC HARI later today
Potentia discharge later today vs tomorrow
Time Spent
Total Time Spent with Patient (in minutes): 20
Subjective Data
-
Interval events:
- Converted to Afib/flutter overnight around 11 PM.
- Additional 5 IV lopressor given for rate control
- EKG obtained, showing Aflutter
- Pain well managed
- Does endorse minimal red tinged sputum overnight
Date of Service: July 05, 2024
Objective Data
-
Intake and Output
07/04/24 07/05/24 07/06/24
06:59 06:59 06:59
Intake Total 1460 / 1460 1800 / 1800
Output Total 1713 / 1713 50 / 50
Balance -253 / -253 1750 / 1750
Intake:
Oral fluids 160 / 160 1800 / 1800
IV fluids (Total) 1300 / 1300
normosol 100 / 100
Output:
Drain Output (Total) 38 50 / 50
Left Abdomen 50 / 50
UrineElliott 167 / 1675
Other:
Number of approximated MODERATE 3
amounts of urine
Number of approximated LARGE 4
amounts of urine
Vital Signs
Temp Pulse Resp BP Pulse Ox
98.2 F 115 16 144/108 90
07/05/24 03:28 07/05/24 03:28 07/05/24 03:28 07/05/24 03:28 07/05/24 03:28
Lab Results
07/05/24 06:54
07/05/24 06:54
Calcium Cancelled 07/05/24 06:54
Phosphorus Cancelled 07/05/24 06:54
Magnesium Cancelled 07/05/24 06:54
Physical Exam
-
General: appears anxious
Cardiac: Afib/flutter, HR 90s-100s
Pulm: No increased work of breathing
Abdomen: Abdomen soft, non-tender. HARI with SS output, minimal overnight
Neuro: Grossly intact
[2024-07-05 07:35] VITALS: BP 133/95
[2024-07-05] MEDS: NSS (PRESERVATIVE FREE) 10 ML IV (07:35)
[2024-07-05] MEDS: PROTONIX IV 40 MG IV (07:36)
[2024-07-05] MEDS: HEPARIN 5000 UNITS SC ×2 (07:36→20:45)
[2024-07-05] MEDS: TOPROL XL 75 MG PO ×2 (07:36→20:46)
[2024-07-05] MEDS: PROZAC 30 MG PO (07:37)
[2024-07-05 07:42] LABS: Magnesium 1.7 mg/dl (1.6-2.3); Phosphorus 2.7 mg/dl (2.5-4.5)
[2024-07-05 11:21] VITALS: BP 142/97
--- NOTE | 2024-07-05 15:32 | CON.CAR ---
Consultation
Consultation Request
Date/Time Consultation Requested: 07/04/2024 at 1530
Date/Time Consultation Performed: 07/04 2024 at 1545
Requesting Provider: Dr. Ramirez Oliveira
Performing Provider: Robert Alfonso MD
Reason for Consultation: Atrial fibrillation
Medical History
-
Chief Complaint: Atrial flutter following pulsed field ablation
History of Present Illness:
83-year-old woman who underwent pulsed field ablation May 18, 2024. She was seen in our office on June 04 and was in sinus rhythm and feeling well at that time. Follow-up was scheduled with Dr. Debby Maynard in 6 months. She developed a
large symptomatic type IV paraesophageal hernia and on July 03. She underwent a robotic assisted laparoscopic paraesophageal hernia repair with a anterior gastropexy. On the , she was doing well. This morning, she developed atrial
fibrillation with a rapid ventricular response. She is anxious, but does not have cardiac complaints of chest pain, shortness of breath, etc. She is aware of her heart rhythm.
Past Medical History
Past Medical History: Arrhythmias (Atrial fibrillation with pulse feel ablation performed April 2024, history of PVI March 2023), CAD (Subclinical, coronary artery calcification seen on CT scan), HTN, Hypercholesterolemia and Other (History of
lower extremity edema)
Past Surgical History: Other (Dermatologic)
Social History
Tobacco: Former Smoker
Alcohol: None
Drug: None
Personal:
Living: Alone
Employment: Retired (Psychologist)
Family History
Family History: Reviewed & Not Pertinent
Allergies / Home Medications
Allergy/AdvReac Type Severity Reaction Status Date / Time
amoxicillin [From Augmentin] Allergy Rash Verified 07/03/24 08:23
clavulanic acid Allergy Rash Verified 07/03/24 08:23
[From Augmentin]
Penicillins Allergy Rash Verified 07/03/24 08:23
�Medication �Instructions �Recorded �Confirmed �Type
apixaban 5 mg tablet (Eliquis) 5 mg PO BID Blood Clot 11/15/20 07/03/24 History
Prevention/Tx
pravastatin 10 mg tablet 10 mg PO QPM High Cholesterol 11/15/20 07/03/24 History
fluoxetine 20 mg capsule 30 mg PO DAILY Depression 06/26/21 07/03/24 History
pentoxifylline 400 mg 400 mg PO DAILY patient takes for 06/26/21 07/03/24 History
tablet,extended release a rash
ferrous sulfate 325 mg (65 mg 325 mg PO QPM Supplement 10/24/22 07/03/24 History
iron) tablet
calcium carbonate 1,000 mg PO QPM 03/18/23 07/03/24 History
coenzyme Q10 100 mg capsule 100 mg PO QPM 03/18/23 07/03/24 History
(CoQ-10)
metoprolol succinate 50 mg 75 mg PO BID 04/01/23 07/03/24 History
tablet,extended release 24 hr
amlodipine 5 mg tablet 5 mg PO QPM #90 tabs 04/02/23 07/03/24 Rx
ascorbic acid (vitamin C) 500 mg 500 mg PO QPM 05/18/24 07/03/24 History
tablet (Vitamin C)
denosumab 60 mg/mL subcutaneous 60 mg SC [id number] 05/18/24 07/03/24 History
syringe (Prolia)
magnesium 200 mg tablet 400 mg PO DAILY 05/18/24 07/03/24 History
multivitamin 1 tab PO QPM 05/18/24 07/03/24 History
pantoprazole 40 mg tablet,delayed 40 mg PO BID #180 tabs 05/22/24 07/03/24 Rx
release
acetaminophen 650 mg 1,300 mg PO PRN PRN pain 06/26/24 07/03/24 History
tablet,extended release
cyanocobalamin (vitamin B-12) 1,000 mcg PO QPM 06/26/24 07/03/24 History
1,000 mcg tablet (Vitamin B-12)
furosemide 20 mg tablet 20 mg PO DAILY PRN Ankle Edema 06/26/24 07/03/24 History
Review of Systems
-
All other systems: Negative unless noted
Physical Exam
Vital Signs
Temp Pulse Resp BP Pulse Ox
36.7 C 115 20 142/97 90
07/05/24 11:21 07/05/24 12:38 07/05/24 11:21 07/05/24 12:38 07/05/24 11:21
Lab Results
07/05/24 06:54
07/05/24 06:54
Physical Exam
General: No Apparent Distress (But anxious)
HEENT: Normocephalic
Respiratory: Crackles (Scattered crackles)
Cardiac: Irregular Rhythm (Rate around 100)
GI: Normal Bowel Sounds
Musculoskeletal: No Edema
Skin: Warm and Dry
Neuro: AO x 3
Psych: Other (Mildly anxious)
Impression / Plan
-
Impression:
Paroxysmal atrial flutter onset 07/05/2024
Paraesophageal hernia repair 07/03/2024
History of pulmonary vein isolation March 2023 and pulsed field ablation on April 2024
Hypertension
Hyperlipidemia
Lower extremity edema
Coronary artery calcification on CT scan, aortic atherosclerosis
Mild mitral and aortic regurgitation
Echocardiogram June 2024: EF 68%, normal RV, mild MR, mild aortic regurgitation, pulmonary artery systolic pressure of 30-35 mmHg
Lexiscan stress test February 2020: EF greater than 75%, small mild fixed basal inferolateral, mid inferolateral, apical lateral, apical anterior and apical defects consistent with soft tissue attenuation artifact, no ischemia
Plan:
She has developed what could be a left atrial flutter following pulsed field ablation. She seems to be tolerating it well and her rate is not excessively rapid.
Will start amiodarone for the short-term, 200 3 times daily. Will discuss with electrophysiology as to whether or not amiodarone should be continued long-term. Other agents could probably be considered such as dofetilide, sotalol but for now
amiodarone is probably the most effective short-term.
As per discussion with Dr. Phipps, resumnelly Field tomorrow.
It is my hope that she will convert to sinus rhythm shortly.
Data Reviewed
-
EKG: Tracing Personally Visualized and interpreted (Atypical atrial flutter with variable AV block nonspecific ST-T changes cannot exclude septal MA)
Medical Tests (Nuc Med, Echo etc): Report Reviewed by me
Labs: Labs Reviewed by me (Hemoglobin 13.7 white count 7.7, , platelets 210, potassium 3.3 BUN/creatinine 9 and 0.5)
Old Records: Reviewed
[2024-07-05 15:35] VITALS: BP 139/88
[2024-07-05] MEDS: NORVASC 5 MG PO (17:42)
[2024-07-05] MEDS: PACERONE 400 MG PO ×2 (17:56→22:14)
[2024-07-05 19:15] VITALS: BP 161/90
[2024-07-05] MEDS: BENADRYL 25 MG PO (22:14)
[2024-07-05 23:04] VITALS: BP 131/87
[2024-07-06] VITALS (7 sets, daily range): BP systolic 132–161; BP diastolic 83–111; PULSE 81; O2SAT 91
[2024-07-06] MEDS: TOPROL XL 75 MG PO ×2 (07:55→20:26)
[2024-07-06] MEDS: PROZAC 30 MG PO (07:56)
[2024-07-06] MEDS: PACERONE 200 MG PO ×3 (07:56→22:24)
[2024-07-06] MEDS: PROTONIX IV 40 MG IV (07:57)
[2024-07-06] MEDS: ELIQUIS 5 MG PO ×2 (07:57→20:26)
[2024-07-06] MEDS: NSS (PRESERVATIVE FREE) 10 ML IV (07:58)
[2024-07-06 09:33] LABS: % Basophils 0.8 % (0-2); % Eosinophils 2.8 % (0-6); % Immature Granulocytes 0.3 % (0-0.5); % Lymphocytes 23.3 % (20.5-51.1); % Monocytes 12.9 % (1.7-9.3); % Neutrophils 59.9 % (42.2-75.2); Absolute Basophils 0.1 10^3/uL (0-0.2); Absolute Eosinophils 0.2 10^3/uL (0-0.7); Absolute Lymphocytes 1.4 10^3/uL (1.2-3.4); Absolute Monocytes 0.8 10^3/uL (0.1-0.6); Absolute Neutrophils 3.7 10^3/uL (1.4-6.5); Hematocrit 42.5 % (37.0-47.0); Hemoglobin 14.4 g/dL (12.0-16.0); Mean Corp Hgb Conc. 33.9 g/dL (33.0-37.0); Mean Corpuscular Hgb 30.6 pg (27.0-31.0); Mean Corpuscular Volume 90.2 fL (81.0-99.0); Mean Platelet Volume 10.2 fL (7.4-10.4); Nucleated Red Blood Cells % 0 %; Platelet Count 223 10^3/uL (130-400); Red Blood Cell Count 4.71 10^6/uL (4.20-5.40); Red Cell Dist. Width 13.9 % (11.5-14.5); White Blood Cell Count 6.2 10^3/uL (4.8-10.8)
--- NOTE | 2024-07-06 10:14 | W.PN.CARDCBS ---
Addendum entered and electronically signed by Skye Almazan PA-C 07/07/24 13:58:
Addendum placed for CDI request. Patient has paroxysmal atrial fibrillation/paroxysmal atrial flutter
Addendum entered and electronically signed by Robert Alfonso MD 07/06/24 12:12:
Patient remains in atrial flutter, rate is reasonably controlled. She is not aware of a flutter but is anxious because of the diagnosis. No cardiac symptoms.
Note of TB reviewed, other data also reviewed. Agree with findings, assessment, and recommendations as noted.
Medications: Amlodipine 5 mg a day, Prozac 30 mg a day, Toprol ER 75 mg twice daily, Trental 400 mg a day, pantoprazole IV, apixaban 5 mg twice daily started, amiodarone 200 mg 3 times daily
145/100, 131/87, pulse 88 respiratory 16, afebrile, lungs are clear, head neck exam unremarkable, irregular rate and rhythm, no obvious murmurs, abdomen benign extremities, small incisions intact without edema
Hemoglobin 14.4, platelets 223, sodium 134, potassium 4, BUN/creatinine 11 and 0.6
Telemetry: Rate is controlled in atrial flutter
Assessment/Plan:
For for full assessment, see below.
Despite the fact that atrial flutter persists after occurring yesterday, she appears well from a cardiac standpoint. She is now anticoagulated within 24 hours of onset of a flutter. Her heart rate is controlled and she is asymptomatic.
From a cardiac standpoint, she could be discharged today, but would not object to observation until tomorrow. She has expressed some reservation regarding discharge given recurrence of atrial flutter, though I reassured her I thought she was doing
well.
If discharged, recommended cardiac meds:
Amlodipine 5 mg a day
Metoprolol ER 75 mg twice daily
Apixaban 5 mg twice daily
Amiodarone 200 mg twice daily x 4 weeks, then 200 mg daily (new)
Furosemide 20 mg as needed edema
Magnesium oxide 400 mg daily (if okay postoperatively)
Pravastatin 10 mg a day
We have arranged for outpatient cardiac follow-up
Original Note:
Today's Communication / Plan
-
Continue amiodarone load
Check EKG for QTc monitoring
Resume Eliquis
Outpatient cardiology follow-up has been arranged
Impression / Plan
-
Client Relationship Executive: Dr. Debby Maynard
[employer] Controller: Dr. Pascual Maynard
Impression:
Presented for elective robotic assisted laparoscopic paraesophageal hernia repair with anterior gastropexy; EGD 07/03/24
Paroxysmal atrial flutter onset 07/05/2024
History of atrial fibrillation with pulmonary vein isolation March 2023 and pulsed field ablation on April 2024
Hypertension
Hyperlipidemia
Lower extremity edema
Coronary artery calcification on CT scan, aortic atherosclerosis
Mild mitral and aortic regurgitation
Echocardiogram June 2024: EF 68%, normal RV, mild MR, mild aortic regurgitation, pulmonary artery systolic pressure of 30-35 mmHg
Lexiscan stress test February 2020: EF greater than 75%, small mild fixed basal inferolateral, mid inferolateral, apical lateral, apical anterior and apical defects consistent with soft tissue attenuation artifact, no ischemia
Plan:
Presented for elective robotic assisted laparoscopic paraesophageal hernia repair with anterior gastropexy; EGD 07/03/24
Patient developed postop left atrial flutter 07/04/2024. Started amiodarone 200 mg 3 times daily on 07/04/2024. Remains in atrial fibrillation at this time. Heart rates reasonably controlled at rest however did elevate during PT this morning.
Patient currently asymptomatic and overall feels well.
Continue with amiodarone load and Toprol. Would d/c home on 200 mg BID for 4 weeks then once a day.
Would consider outpatient cardioversion if patient fails to convert to sinus rhythm once patient has been back on uninterrupted anticoagulation.
Check EKG with amiodarone load to monitor QTc
Eliquis resumed 07/06/2024 in a.m.
Continue postop care per surgery. Tolerating food without abdominal pain
Will arrange for outpatient cardiology follow-up.
History of Present Illness 07/05/2024:
83-year-old woman who underwent pulsed field ablation May 18, 2024. She was seen in our office on June 04 and was in sinus rhythm and feeling well at that time. Follow-up was scheduled with Dr. Debby Maynard in 6 months. She developed a
large symptomatic type IV paraesophageal hernia and on July 03. She underwent a robotic assisted laparoscopic paraesophageal hernia repair with a anterior gastropexy. On the , she was doing well. This morning, she developed atrial
fibrillation with a rapid ventricular response. She is anxious, but does not have cardiac complaints of chest pain, shortness of breath, etc. She is aware of her heart rhythm.
Progress Note - Client Relationship Executive
Subjective
Date of Service: July 06, 2024
Patient seen and examined. Patient reports that she is feeling well. She was able to tolerate oral foods without abdominal pain. She was able to walk around the halls this morning with physical therapy and denies chest pain, shortness of breath,
dizziness or lightheadedness
Objective
Labs:
07/06/24 08:39
Labs
Hgb 14.4 g/dL (12.0-16.0) 07/06/24 08:39
Hct 42.5 % (37.0-47.0) 07/06/24 08:39
Plt Count 223 10^3/uL (130-400) 07/06/24 08:39
Sodium Cancelled 07/05/24 06:54
Potassium Cancelled 07/05/24 06:54
BUN Cancelled 07/05/24 06:54
Creatinine Cancelled 07/05/24 06:54
Glucose Cancelled 07/05/24 06:54
Vital Signs and I&O:
Vital Signs
Temp Pulse Resp BP Pulse Ox
97.8 F 88 16 145/111 91
07/06/24 07:09 07/06/24 07:56 07/06/24 07:09 07/06/24 07:56 07/06/24 08:01
Vital Signs
Temp Pulse Resp BP Pulse Ox
97.8 F 88 16 145/111 91
07/06/24 07:09 07/06/24 07:56 07/06/24 07:09 07/06/24 07:56 07/06/24 08:01
Intake & Output
07/04/24 07/05/24 07/06/24 07/07/24
06:59 06:59 06:59 06:59
Intake Total 1460 / 1460 1800 / 1800 1320 / 1320
Output Total 1713 / 1713 50 / 50
Balance -253 / -253 1750 / 1750 1320 / 1320
Physical Exam
Physical Exam
GEN: No distress, awake, Ox3 sitting up in chair
HEENT: supple, anicteric, mmm
LUNGS: CTA, no wheezes/rales
CV: Irregularly irregular, S1/S2, 1/6 syst LSB, no murmur
ABD: soft, BS+, NT/ND
EXT: No edema, clubbing or cyanosis. Right lower extremity with Thomas wrap and dressing patient status post Mohs surgery
NEURO: Gross non-focal
SKIN: No rash, warm, dry, pink
--- NOTE | 2024-07-06 10:16 | CM ---
Addendum entered by Amanda Crook 07/06/24 12:38:
Accepted by [facility]
Original Note:
Chart reviewed. Met with pt
Pt status changed to inpatient - given IMM
PT - recs HH - discussed with pt - agreeable to HH, no preference
Referral sent in [facility]
Reports daughter to transport home when medically ready
Plan - anticipate home with [facility] when medically stable
[2024-07-06 10:22] LABS: Blood Urea Nitrogen 11 mg/dl (7-17); Calcium 8.7 mg/dl (8.4-10.2); Carbon Dioxide 24 mmol/L (22-30); Chloride 101 mmol/L (98-107); Estimated Creatinine Clearance 60 ml/min; Glucose 102 mg/dl (70-99); Magnesium 1.7 mg/dl (1.6-2.3); Phosphorus 3.8 mg/dl (2.5-4.5); Sodium 134 mmol/L (135-145); eGFR > 60.00
--- NOTE | 2024-07-06 15:21 | W.PN.GS2 ---
Today's Communication / Plan
-
Dispo planning
Assessment / Plan
-
This is an 83-year-old female POD #3 status post robotic type IV hiatal hernia repair and placement of a HARI for capnothorax. Postop course notable for atrial fibrillation with RVR now rate controlled
Appreciate cardiology recommendations amiodarone 200 mg twice daily x 4 weeks started
Continue incentive spirometry
Will resume Eliquis today
Will DC home today
Time Spent
Total Time Spent with Patient (in minutes): 20
Subjective Data
-
Date of Service: July 06, 2024
Interval Events:
No acute events overnight. Slept well. Pain Controlled. Denies Nausea/Vomiting, +bowel function. Tolerating diet.
Objective Data
-
Intake and Output
07/05/24 07/06/24 07/07/24
06:59 06:59 06:59
Intake Total 1800 / 1800 1320 / 1320
Output Total 50 / 50
Balance 1750 / 1750 1320 / 1320
Intake:
Oral fluids 1800 / 1800 1320 / 1320
Output:
Drain Output (Total) 50 / 50
Left Abdomen 50 / 50
Other:
Number of approximated MODERATE 3 2
amounts of urine
Number of approximated LARGE 4
amounts of urine
Vital Signs
Temp Pulse Resp BP Pulse Ox
97.4 F 97 16 132/88 94
07/06/24 11:00 07/06/24 11:00 07/06/24 11:00 07/06/24 11:00 07/06/24 11:00
Lab Results
07/06/24 08:39
07/06/24 08:39
Calcium 8.7 mg/dl (8.4-10.2) 07/06/24 08:39
Phosphorus 3.8 mg/dl (2.5-4.5) 07/06/24 08:39
Magnesium 1.7 mg/dl (1.6-2.3) 07/06/24 08:39
Physical Exam
-
GENERAL/NEURO: Awake, Alert, no distress
CHEST: Unlabored breathing on RA
ABDOMEN: Soft, Non-Tender, Non-Distended, incisions clean dry and intact.
Patient has a lan catheter: No
Patient has a central line: No
[2024-07-06] MEDS: MIRALAX 17 GRAMS PO (16:28)
[2024-07-06] MEDS: NORVASC 5 MG PO (17:30)
[2024-07-06] MEDS: BENADRYL 25 MG PO (22:27)
[2024-07-07 07:10] VITALS: BP 142/91
--- NOTE | 2024-07-07 07:40 | W.PN.GS2 ---
Addendum entered and electronically signed by Deejay Landin MD 07/20/24 17:26:
patient status was changed to inpatient due to
Post op management from robotic assisted lap repair of large type IV hiatal hernia
post op Atrial fibrillation with RVR
patient with initial acute pulmonary insufficiency following surgery likely secondary to atelectasis and anesthetic/analgesic effects which resolved with IS use and improved mobility/ambulation post op
Original Note:
Today's Communication / Plan
-
`
Assessment / Plan
-
Assessment: 83-year-old female POD #4 status post robotic type IV hiatal hernia repair
Postop course notable for atrial fibrillation with RVR now rate controlled
AFVSS
Plan: d/c home
medications adjusted per cards recs
Subjective Data
-
Date of Service: July 07, 2024
pt seen and examined
feels well
jakub Po, no dysphagia no nausea
no post op pain
Objective Data
-
Intake and Output
07/06/24 07/07/24 07/08/24
06:59 06:59 06:59
Intake Total 1320 / 1320 2520 / 2520
Balance 1320 / 1320 2520 / 2520
Intake:
Oral fluids 1320 / 1320 2520 / 2520
Other:
Number of approximated MODERATE 2 1
amounts of urine
Vital Signs
Temp Pulse Resp BP Pulse Ox
97.8 F 97 18 144/88 93
07/06/24 22:32 07/06/24 22:32 07/06/24 19:00 07/06/24 22:32 07/06/24 22:32
Lab Results
07/06/24 08:39
07/06/24 08:39
Calcium 8.7 mg/dl (8.4-10.2) 07/06/24 08:39
Phosphorus 3.8 mg/dl (2.5-4.5) 07/06/24 08:39
Magnesium 1.7 mg/dl (1.6-2.3) 07/06/24 08:39
Physical Exam
-
NAD AAOx3
ABD: soft, ND, NTTP
incisions with glue dressings
--- NOTE | 2024-07-07 07:43 | W.DS.TRANS ---
Addendum entered and electronically signed by AHMET Live 07/16/24 12:29:
dictated #[id number]
Original Note:
DC Summary - Floor Technician
-
Discharge Instructions:
Sleep Apnea Risk Low
Discharge Diagnosis/Procedures Paraesophageal hernia. Robotic assisted
laparoscopic repair of paraesophageal hernia
with gastropexy.
Diet Other diet,Low Residue
Additional Diets Smaller portion and bite sizes. Easier to chew/
softer foods. Take care to allow time for
swallowing. Avoid carbonation.
Activity No strenuous activity
Additional Activity No lifting over 15-20lbs for 12 weeks postop
Driving Restrictions No driving 2 to 3 days or if using narcotics
Bathing Restrictions OK to Shower
Wound Care Glue at surgical sites typically peels off in 2
to 3 weeks
Instructions:
Stand-Alone Forms:
Changes to Home Medications: Yes
Discharge Medications:
DC Medications w/original date entered in [facility]
apixaban 5 mg tablet (Eliquis) 5 mg PO BID Blood Clot Prevention/Tx 11/15/20
pravastatin 10 mg tablet 10 mg PO QPM High Cholesterol 11/15/20
fluoxetine 20 mg capsule 30 mg PO DAILY Depression 06/26/21
pentoxifylline 400 mg tablet,extended release 400 mg PO DAILY patient takes for a rash 06/26/21
ferrous sulfate 325 mg (65 mg iron) tablet 325 mg PO QPM Supplement 10/24/22
calcium carbonate 1,000 mg PO QPM 03/18/23
coenzyme Q10 100 mg capsule (CoQ-10) 100 mg PO QPM 03/18/23
metoprolol succinate 50 mg tablet,extended release 24 hr 75 mg PO BID 04/01/23
amlodipine 5 mg tablet 5 mg PO QPM #90 tabs 04/02/23
ascorbic acid (vitamin C) 500 mg tablet (Vitamin C) 500 mg PO QPM 05/18/24
denosumab 60 mg/mL subcutaneous syringe (Prolia) 60 mg SC [id number] 05/18/24
magnesium 200 mg tablet 400 mg PO DAILY 05/18/24
multivitamin 1 tab PO QPM 05/18/24
pantoprazole 40 mg tablet,delayed release 40 mg PO BID #180 tabs 05/22/24
acetaminophen 650 mg tablet,extended release 1,300 mg PO PRN PRN pain 06/26/24
cyanocobalamin (vitamin B-12) 1,000 mcg tablet (Vitamin B-12) 1,000 mcg PO QPM 06/26/24
furosemide 20 mg tablet 20 mg PO DAILY PRN Ankle Edema 06/26/24
amiodarone 200 mg tablet 200 mg PO BID #90 tabs 07/06/24
ondansetron 4 mg disintegrating tablet 4 mg PO Q8HPRN PRN nausea/vomiting #10 tabs 07/06/24
Home Medication Changes
NEW MEDICATION -> Amiodarone 200mg PO BID x 4 weeks then once daily
CHANGE MEDICATION -> Pantoprazole 40mg once daily
Pending Results: No
[2024-07-07] MEDS: PROZAC 30 MG PO (08:51)
[2024-07-07] MEDS: MIRALAX PO ×2 (08:51→08:59)
[2024-07-07] MEDS: TOPROL XL 75 MG PO (08:51)
[2024-07-07] MEDS: NSS (PRESERVATIVE FREE) 10 ML IV (08:51)
[2024-07-07] MEDS: ELIQUIS 5 MG PO (08:52)
[2024-07-07] MEDS: PROTONIX IV 40 MG IV (08:52)
[2024-07-07] MEDS: PACERONE 200 MG PO (08:52)
--- NOTE | 2024-07-07 10:29 | CM ---
Pt for discharge today
Pt reports daughter to transport home
[facility] to follow
Plan - home with [facility]
[2024-07-07 11:10] VITALS: BP 102/70
--- NOTE | 2024-07-07 12:44 | PN.CDI ---
CDI
- -
CDI:
Physician Documentation Request
Admit Date: 07/06/24 10:38
Dear Skye Almazan,
Patient is status post robotic hiatal hernia repair. Cardiology was consulted for atrial fib/flutter.
If possible, please provide further specificity regarding atrial fibrillation:
Paroxysmal atrial fibrillation - terminates spontaneously or with intervention within 7 days of onset
Persistent atrial fibrillation - episodes of continuous AF that last more than 7 days and do not self-terminate
Permanent atrial fibrillation - when a decision has been made to accept the presence of AF and there is no further attempt to restore or maintain sinus rhythm
Other - please specify
Use of terms such as suspected, likely, concern for, or probable (associated with a specific diagnosis that is being evaluated, monitored, or treated as if it exists) are acceptable and can be coded in the inpatient setting, when documented at the
time of discharge.
Thank you,
Adalgisa Cyr RN, BSN
CDI Specialist
tiger text
Please use your independent medical judgment in providing your response.
--- NOTE | 2024-07-16 13:28 | PN.CDI ---
CDI
- -
CDI:
Physician Documentation Request
Admit Date: 07/06/24 10:38
Dear Doctor Urvashi,
Patient admitted after hernia repair/afib management.
07/04 Nursing note states 'Increased oxygen from 3L to 5L as pt's SaO2 90% on 3L NC.'
Please clarify which of the following accurately represents the patient's respiratory status following surgery:
Acute respiratory failure - please specify type
Acute pulmonary insufficiency (following surgery)
Hypoxia
Other
Additional information for Pulmonary Insufficiency:
Consider when patients require long term care administrator oxygen therapy postoperatively
Weaned off oxygen initially then requiring supplemental oxygen
No other definitive diagnosis to support the need for oxygen (COPD exac, CHF etc.)
Unable to wean from vent
When criteria for respiratory failure not present
May extend stay or require additional resources; may need home O2
Additional information for Respiratory Failure:
Recognized criteria for Respiratory Failure (Source: [facility] Mar 2013)
ABGs: (1 or more) Symptoms Indicate:
1. p)2 <60 or RA SPO2 <91% on RA 1. Tachypnea, SOB, dyspnea 1. Type as:
2. pCO2 50 and pH <7.35 2. Use of accessory muscles a. Hypoxic
3. pO2 decrease of pCO2 increase by 3. Pallor or cyanosis b. Hypercapnic
10 mmHg from baseline if known 4. Anxiety or restlessness 2. If due to procedure or due to another cause
5. Unable to speak in full sentences
Supplemental O2 of > 40% Intubation is not required
Use of terms such as suspected, likely, concern for, or probable (associated with a specific diagnosis that is being evaluated, monitored, or treated as if it exists) are acceptable and can be coded in the inpatient setting, when documented at the
time of discharge.
Thank you,
Adalgisa Cyr RN, BSN
CDI Specialist
tiger text
Please use your independent medical judgment in providing your response.
--- NOTE | 2024-07-16 13:40 | PN.CDI ---
CDI
- -
CDI:
Physician Documentation Request
Admit Date: 07/06/24 10:38
Dear Doctor Urvashi,
Patient presented to hospital on 07/03 for Robotic assisted laparoscopic paraesophageal hernia repair with anterior gastropexy
Postop course notable for atrial fibrillation with RVR now rate controlled
07/05 cardiology consulted for atrial fibrillation/atrial flutter
07/06 cardiology note states ' she could be discharged today, but would not object to observation until tomorrow.'
Patient was changed to inpatient status on 07/06
Could you please clarify the reason patient status was changed to inpatient:
Post robotic type IV hiatal hernia repair management
Atrial fibrillation with RVR
Other
Use of terms such as suspected, likely, concern for, or probable (associated with a specific diagnosis that is being evaluated, monitored, or treated as if it exists) are acceptable and can be coded in the inpatient setting, when documented at the
time of discharge.
Thank you,
Adalgisa Cyr RN BSN
CDI Specialist
tiger text
Please use your independent medical judgment in providing your response.
== END 2024-07-07 14:14 | disposition home health service (06) | DRG 326 ==
LOC: 2 SOUTH 10:38
PROVIDERS: Surgery; ADMITTING PHYSICIAN Surgery; FAMILY PHYSICIAN Family Medicine; OTHER PHYSICIAN Internal Medicine Cardiovascular Disease
PROC: 8E0W4CZ Robotic Assisted Procedure of Trunk Region, Percutaneous Endoscopic Approach (ICD-10-PCS; 2024-07-03)
PROC: 0DS64ZZ Reposition Stomach, Percutaneous Endoscopic Approach (ICD-10-PCS; 2024-07-03)
PROC: 0BQT4ZZ Repair Diaphragm, Percutaneous Endoscopic Approach (ICD-10-PCS; 2024-07-03)
PROC: 0DJ08ZZ Inspection of Upper Intestinal Tract, Via Natural or Artificial Opening Endoscopic (ICD-10-PCS; 2024-07-03)
DX: K44.9 Diaphragmatic hernia without obstruction or gangrene (principal); J95.2 Acute pulmonary insufficiency following nonthoracic surgery; I48.92 Unspecified atrial flutter; K29.50 Unspecified chronic gastritis without bleeding; I48.0 Paroxysmal atrial fibrillation; F32.A Depression, unspecified; I10 Essential (primary) hypertension; F41.9 Anxiety disorder, unspecified; K31.89 Other diseases of stomach and duodenum; R60.0 Localized edema; I25.10 Atherosclerotic heart disease of native coronary artery without angina pectoris; I08.0 Rheumatic disorders of both mitral and aortic valves; I70.0 Atherosclerosis of aorta; Y83.8 Other surgical procedures as the cause of abnormal reaction of the patient, or of later complication, without mention of misadventure at the time of the procedure; Z87.891 Personal history of nicotine dependence; Z79.01 Long term (current) use of anticoagulants
CPT/HCPCS: 43281; 43235; 80048; 83735; 84100; 85025; 85027; 93005; 97116; 97162; 97167; 97530

== ENCOUNTER → 2025-02-25 09:30 | Day surgery (SDC) | payer MEDICARE, OTHER, SELFPAY | LOC: CATH 09:30 | PROVIDERS: ATTENDING PHYSICIAN Internal Medicine Cardiovascular Disease; FAMILY PHYSICIAN Family Medicine; OTHER PHYSICIAN Internal Medicine Cardiovascular Disease | DX: I48.0 Paroxysmal atrial fibrillation (principal); Z53.09 Procedure and treatment not carried out because of other contraindication; I44.0 Atrioventricular block, first degree; I47.19 Other supraventricular tachycardia; I10 Essential (primary) hypertension; Z79.01 Long term (current) use of anticoagulants | CPT/HCPCS: 93005 ==